=== PATIENT | female | born 1995 | race Caucasian/White ===

== ENCOUNTER 2018-05-23 10:44 | Emergency (ER) | payer OTHER ==
[2018-05-23] MEDS: NS 1,000 ML IV (11:15)
[2018-05-23] MEDS: ONDANSETRON 4MG/2ML VIAL (J2405) IV (11:15)
[2018-05-23 11:38] LABS: KETONE, URINE AUTO RFX NEGATIVE (NEGATIVE); LEUKOCYTE ESTERASE UR AUTO RFX NEGATIVE (NEGATIVE); MUCUS, URINE RFX SMALL (NEGATIVE); NITRITE, URINE AUTO RFX NEGATIVE (NEGATIVE); RBC, URINE AUTO RFX 6 /HPF (0-3); SPECIFIC GRAVITY UR AUTO RFX 1.025 (1.002-1.035); SQUAM EPITHELIAL CELL UR AURFX 8 /HPF (0-6); WBC, URINE AUTO RFX 10 /HPF (0-3)
[2018-05-23] MEDS: GASTROGRAFIN SOLUTION 30ML PO ×2 (11:45→12:15)
[2018-05-23] MEDS: MORPHINE 2 MG/ML 1ML SYRINGE (J2270) IV (12:10)
[2018-05-23 12:15] LABS: BASO % 0.3 % (0.0-1.0); EOS % 0.3 % (0.0-3.0); HEMATOCRIT 40.7 % (36.0-47.0); HEMOGLOBIN 13.7 g/dl (12.0-15.5); IMMATURE GRANULOCYTE % 0.6 % (0-3.0); LYMPH # 1.2 10^3/uL (1.5-6.5); MEAN CORPUSCULAR HEMOGLOBIN 29.8 pg (27.0-33.0); MEAN CORPUSCULAR HGB CONC 33.7 g/dl (32.0-36.5); MEAN CORPUSCULAR VOLUME 88.5 fl (80.0-96.0); MONO # 0.3 10^3/uL (0.0-0.8); MONO % 3.3 % (0.0-5.0); NEUTROPHILS # 8.5 10^3/uL (1.8-7.7); NEUTROPHILS % 83.5 % (36.0-66.0); PLATELET COUNT, AUTOMATED 253 10^3/uL (150-450); RED CELL DISTRIBUTION WIDTH 12.4 % (11.5-14.5); WHITE BLOOD COUNT 10.1 10^3/uL (4.0-10.0)
[2018-05-23 12:47] LABS: ALBUMIN 3.9 GM/DL (3.2-5.2); ALBUMIN/GLOBULIN RATIO 1.15 (1.00-1.93); ALKALINE PHOSPHATASE 82 U/L (45-117); ALT/SGPT 20 U/L (12-78); ANION GAP 7 MEQ/L (8-16); AST/SGOT 11 U/L (7-37); BILIRUBIN,DIRECT 0.2 MG/DL (0.0-0.2); BILIRUBIN,TOTAL 0.9 MG/DL (0.2-1.0); BLOOD UREA NITROGEN 13 MG/DL (7-18); C REACTIVE PROTEIN QUANTITATIV 0.46 MG/DL (0.00-0.30); CARBON DIOXIDE LEVEL 27 MEQ/L (21-32); CHLORIDE LEVEL 106 MEQ/L (98-107); GLOMERULAR FILTRATION RATE > 60.0 (>60); GLUCOSE, FASTING 87 MG/DL (70-100); LIPASE 95 U/L (73-393); POTASSIUM SERUM 3.9 MEQ/L (3.5-5.1); SODIUM LEVEL 140 MEQ/L (136-145); TOTAL PROTEIN 7.3 GM/DL (6.4-8.2)
[2018-05-23 12:50] LABS: ERYTHROCYTE SEDIMENTATION RATE 9 mm/hr (0-20)
[2018-05-23] MEDS ORDERED: ISOVUE-370 76% 100ML VIAL (Q9967) As Ordered (12:59)
== END 2018-05-23 14:05 | disposition home or self-care (01) ==
LOC: M ED 10:44
DX: K52.9 Noninfective gastroenteritis and colitis, unspecified (principal); F41.9 Anxiety disorder, unspecified; F32.9 Major depressive disorder, single episode, unspecified; Z88.0 Allergy status to penicillin; Z79.899 Other long term (current) drug therapy
CPT/HCPCS: Q9963

== ENCOUNTER → 2018-06-12 | Outpatient (REF) | payer OTHER ==
[2018-06-12 18:07] LABS: BASO # 0.1 10^3/uL (0.0-0.2); BASO % 0.8 % (0.0-1.0); EOS # 0.1 10^3/uL (0.0-0.50); EOS % 0.9 % (0.0-3.0); HEMATOCRIT 44.2 % (36.0-47.0); HEMOGLOBIN 14.9 g/dl (12.0-15.5); IMMATURE GRANULOCYTE % 0.3 % (0-3.0); LYMPH # 1.7 10^3/uL (1.5-6.5); LYMPH % 26.7 % (24.0-44.0); MEAN CORPUSCULAR HEMOGLOBIN 29.5 pg (27.0-33.0); MEAN CORPUSCULAR HGB CONC 33.7 g/dl (32.0-36.5); MEAN CORPUSCULAR VOLUME 87.5 fl (80.0-96.0); MONO # 0.3 10^3/uL (0.0-0.8); MONO % 4.3 % (0.0-5.0); NEUTROPHILS # 4.3 10^3/uL (1.8-7.7); PLATELET COUNT, AUTOMATED 289 10^3/uL (150-450); RED BLOOD COUNT 5.05 10^6/uL (4.00-5.40); RED CELL DISTRIBUTION WIDTH 12.5 % (11.5-14.5); WHITE BLOOD COUNT 6.5 10^3/uL (4.0-10.0)
[2018-06-12 18:17] LABS: ALBUMIN 3.9 GM/DL (3.2-5.2); ALBUMIN/GLOBULIN RATIO 1.08 (1.00-1.93); ALKALINE PHOSPHATASE 62 U/L (45-117); ALT/SGPT 35 U/L (12-78); ANION GAP 7 MEQ/L (8-16); AST/SGOT 21 U/L (7-37); BILIRUBIN,TOTAL 0.9 MG/DL (0.2-1.0); BLOOD UREA NITROGEN 9 MG/DL (7-18); CALCIUM LEVEL 8.5 MG/DL (8.5-10.1); CARBON DIOXIDE LEVEL 26 MEQ/L (21-32); CHLORIDE LEVEL 106 MEQ/L (98-107); GLOMERULAR FILTRATION RATE > 60.0 (>60); GLUCOSE, FASTING 91 MG/DL (70-100); SODIUM LEVEL 139 MEQ/L (136-145); THYROXINE (T4) 9.8 UG/DL (4.5-12.0); TOTAL PROTEIN 7.5 GM/DL (6.4-8.2)
[2018-06-12 18:18] LABS: TOTAL 25(OH) VITAMIN D < 4.2 NG/ML (30.0-100.0); TOTAL T3 133.5 NG/DL (60.0-181.0)
[2018-06-18 10:16] LABS: SUMMARY FINAL (.)
== END ==
LOC: M LAB REF 16:33
DX: F41.8 Other specified anxiety disorders (principal)
CPT/HCPCS: 84443

== ENCOUNTER 2018-10-07 19:53 | Emergency (ER) | payer OTHER ==
[~2018-10-07] VITALS: Ht 157.5 cm; Wt 73.6 kg
[2018-10-07 19:53] VITALS: BP 118/79
[~2018-10-07 19:53] MED LIST: CIPR-249 PO; FLAG500T PO; LEXA1TAB2 PO; SERO1TAB3 PO
[2018-10-07] MEDS ORDERED: LEXA1TAB2 PO (20:29)
[2018-10-07] MEDS ORDERED: ESCITALOPRAM OXALATE 10 MG TAB (LEXAPRO) PO ONE (20:30)
== END 2018-10-07 20:44 | disposition home or self-care (01) ==
LOC: M ED 19:53
DX: Z76.0 Encounter for issue of repeat prescription (principal); F33.9 Major depressive disorder, recurrent, unspecified; F41.9 Anxiety disorder, unspecified; Z88.0 Allergy status to penicillin

== ENCOUNTER 2020-01-11 03:44 | Inpatient (IN) | payer OTHER, SELFPAY ==
[~2020-01-11] VITALS: Ht 157.5 cm; Wt 85.1 kg
[2020-01-11 04:56] LABS: HEMOGLOBIN 14.2 g/dl (12.0-15.5); MEAN CORPUSCULAR HEMOGLOBIN 28.8 pg (27.0-33.0); MEAN CORPUSCULAR HGB CONC 33.8 g/dl (32.0-36.5); MEAN CORPUSCULAR VOLUME 85.2 fl (80.0-96.0); PLATELET COUNT, AUTOMATED 323 10^3/uL (150-450); RED BLOOD COUNT 4.93 10^6/uL (4.00-5.40)
[2020-01-11 05:14] LABS: AMPHETAMINES LEVEL URINE NEGATIVE (NEGATIVE); BARBITURATES URINE NEGATIVE (NEGATIVE); BENZODIAZEPINES URINE NEGATIVE (NEGATIVE); CANNABINOIDS URINE POSITIVE (NEGATIVE); COCAINE METABOLITE URINE NEGATIVE (NEGATIVE); METHADONE URINE NEGATIVE (NEGATIVE); OPIATES URINE NEGATIVE (NEGATIVE); PHENCYCLIDINE URINE NEGATIVE (NEGATIVE)
[2020-01-11 05:14] LABS: HCG, SERUM QUALITATIVE NEGATIVE (NEGATIVE)
[2020-01-11 05:25] LABS: ACETAMINOPHEN LEVEL < 2.0 UG/ML (10.0-30.0); ALBUMIN 4.1 GM/DL (3.2-5.2); ALT/SGPT 28 U/L (12-78); BILIRUBIN,DIRECT 0.3 MG/DL (0.0-0.2); BILIRUBIN,TOTAL 1.3 MG/DL (0.2-1.0); BLOOD UREA NITROGEN 11 MG/DL (7-18); CALCIUM LEVEL 9.1 MG/DL (8.5-10.1); CARBON DIOXIDE LEVEL 21 MEQ/L (21-32); CHLORIDE LEVEL 107 MEQ/L (98-107); CREATININE FOR GFR 0.76 MG/DL (0.55-1.30); ETHYL ALCOHOL (ETHANOL) 0.003 % (0.000-0.010); GLOMERULAR FILTRATION RATE > 60.0 (>60); GLUCOSE, FASTING 96 MG/DL (70-100); POTASSIUM SERUM 3.5 MEQ/L (3.5-5.1); SALICYLATE LEVEL < 1.7 MG/DL (5.0-30.0); SODIUM LEVEL 140 MEQ/L (136-145); TOTAL PROTEIN 7.5 GM/DL (6.4-8.2)
[2020-01-11] MEDS ORDERED: ONDANSETRON 4 MG ORAL DISINTEGRATING TAB PO ONE (07:00)
[2020-01-11] MEDS ORDERED: LORazepam 1 MG TAB PO STA (08:10)
[2020-01-11] MEDS ORDERED: QUET1TAB7 PO (08:25)
[2020-01-11] MEDS ORDERED: DROS1TAB2 PO (08:25)
[2020-01-11 10:42] LABS: CK-MB VALUE MASS < 1.0 NG/ML (<3.6); CPK CREATINE PHOSPHOKINASE 50 U/L (26-192); TROPONIN I < 0.02 NG/ML (< 0.10)
--- NOTE | 2020-01-11 10:44 | ECGEPIP ---
[facility] - ED Test Date: 2020-01-11 Pat Name: HOLLY COSTA Department: Room: - Gender: Female Junior Net Developer: LEVAR : 1995 Requested By: Krzysztof Hernandes Order Number: [id number] Reading MD: Massiel Butler Measurements Intervals [place] Rate: 111 P: 64 AR: 102 QRS: 44 QRSD: 83 T: 70 QT: 354 QTc: 483 Interpretive Statements SINUS TACHYCARDIA WITH SHORT AR INTERVAL LOW QRS VOLTAGE IN PRECORDIAL LEADS MODERATE T-WAVE ABNORMALITY, CONSIDER ANTERIOR ISCHEMIA CLINICAL CORRELATION NO PRIOR Electronically Signed on 01-11-2020 10:44:19 EDT by Massiel Butler
[2020-01-11] MEDS ORDERED: LORazepam 2 MG/ML VIAL IV STA (14:21)
[2020-01-11] MEDS ORDERED: ISOVUE-370 76% 100ML VIAL As Ordered ONE (14:27)
[2020-01-11] MEDS ORDERED: ONDANSETRON 4MG/2ML VIAL IV ONE (14:30)
[2020-01-11] MEDS ORDERED: NS 1,000 ML IV ONE (15:00)
[2020-01-11] MEDS ORDERED: MAALOX 30 ML SUSP *UDC PO PRN (22:45)
[2020-01-11] MEDS ORDERED: MOM 30ML SUSPENSION UDC PO PRN (22:45)
[2020-01-11] MEDS ORDERED: ACETAMINOPHEN TAB 650MG DOSE (2X325MG) PO PRN (22:45)
[2020-01-11] MEDS ORDERED: LEXA1TAB2 PO (23:01)
[2020-01-12] VITALS: BP 133/67
[2020-01-12] MEDS ORDERED: QUEtiapine FUMARATE 25 MG TAB PO PRN
[2020-01-12] MEDS: traZODone 50 MG TAB PO PRN ×2 (00:03→21:51)
[2020-01-12] MEDS: OLANZapine ORAL DISINTEGRATING TAB 5MG PO PRN ×4 (00:44→21:51)
[2020-01-12 06:10] VITALS: BP 121/62
[2020-01-12] MEDS ORDERED: ESCITALOPRAM OXALATE 10 MG TAB (LEXAPRO) PO SCH (09:00)
[2020-01-12] MEDS: ESCITALOPRAM OXALATE 10 MG TAB (LEXAPRO) PO SCH (09:07)
--- NOTE | 2020-01-12 11:12 | MHHPEPDOC ---
[facility] History & Physical History and Physical DATE OF ADMISSION: Jan 11, 2020 at 22:39 HPI: The patient presented to [facility] after having increasing anxiety over the past several days when she was not able to go on a vacation, she subsequently reported suicidal thoughts with a plan to overdose. She doesn't engage in any interview. Past Psych Hx She reports being diagnosed in the past with depression, DYLAN, and borderline personality disorder. She currently only has one admission two years ago in [facility]. Currently, at [facility]; only prescribed Lexapro and Seroquel. MEDICAL HISTORY: No history of suicide attempts or history of inpatient admissions. Fmhx: unknown SOCHX: reportedly . Objective Behavior: Patient is attempted to be met with but she is asleep and does not wake to me calling her name; she does appear to respond otherwise. . Assessment F33.9 Major depressive disorder, recurrent, unspecified Plan Continue medications and observations as of current with no changes. Will attempt to engage patient tomorrow to better effect. Other history information is unable to be gained at this time. Treatment objectives: 1. Risk for suicide 2. Ineffective coping. Estimated length of stay anywhere between two to three days. Vital Signs Vital Signs Date Time Temp Pulse Resp B/P (MAP) Pulse Ox O2 Delivery O2 Flow Rate FiO2 01/12/20 06:10 99.0 63 18 121/62 (81) 01/12/20 00:00 97 Room Air Laboratory Data 24H Labs Laboratory Tests 2 01/11/20 18:05: Coronavirus (COVID-19)(PCR) NEGATIVE Medications Scheduled Escitalopram Oxalate (Lexapro) 20 Mg Tablet, 20 MG PO DAILY, (Reported) Ethinyl Estradiol/Drospirenone (Drospirenone-Ee 3-0.02 mg Tab) 1 Each Tablet, 1 TAB PO DAILY, (Reported) Scheduled PRN Quetiapine Fumarate (Quetiapine Fumarate) 25 Mg Tablet, 25 MG PO DAILY PRN for PANIC ATTACK, (Reported) Allergies Coded Allergies: Penicillins (Verified Allergy, Unknown, 10/07/18) amoxicillin (Verified Allergy, Unknown, 10/07/18) RUDDY DERAS DO Jan 12, 2020 11:12
--- NOTE | 2020-01-12 12:26 | REP ---
CT ABDOMEN/PELVIS WITH IV CONTRAST: TECHNIQUE: Axial contrast-enhanced images from the lung bases to the pubic symphysis using 100 mL Isovue-370 intravenous contrast material with multiplanar reformations. Visualized lung bases are clear. The liver, spleen, adrenals, pancreas, and kidneys are normal in appearance. There is no adenopathy. There is no free air or free fluid. There is no bowel obstruction. Abdominal aorta is normal in caliber with no aneurysm. There is no pelvic mass. Urinary bladder is not well distended and not well evaluated. IMPRESSION: No acute abnormalities detected. Electronically Signed by Ben Dong MD 01/13/2020 11:30 P
--- NOTE | 2020-01-12 15:29 | HPEPDOC ---
General Date of Admission Jan 11, 2020 at 22:39 Date of Service: Jan 12, 2020 Attending Physician: YVETTE PINTO MD Chief Complaint The patient is a 24-year-old female admitted with a reason for visit of Unspecified Depressive Disorder. Source: Patient Exam Limitations: No limitations Timing/Duration: Getting worse Severity: Moderate, Severe History of Present Illness 24 yo W who reports a prior history of MDD, DYLAN, borderline personality disorder who is admitted to the [facility] after presenting to the ED with worsening debilitating anxiety now having SI with passive plan to OD on medications as well as persistent diarrhea for about 1 month. She reports that she used to smoke marijuana daily but has slowed down recently as it does not seem to help her anxiety and since finding out that it may cause GI upset and diarrhea, and her diarrhea has improved. Workup in the ED was notable for a grossly normal CBC, BMP, CT A/P and tox screen was positive for marijuana. Outside of diarrhea and some episodic abdominal cramping she denies any abdominal pain, N/V/hematochezia, melena, chest pain, fever, chills, travel, sick contacts or food allergies. Home Medications Scheduled Escitalopram Oxalate (Lexapro) 20 Mg Tablet, 20 MG PO DAILY, (Reported) Ethinyl Estradiol/Drospirenone (Drospirenone-Ee 3-0.02 mg Tab) 1 Each Tablet, 1 TAB PO DAILY, (Reported) Scheduled PRN Quetiapine Fumarate (Quetiapine Fumarate) 25 Mg Tablet, 25 MG PO DAILY PRN for PANIC ATTACK, (Reported) Allergies Coded Allergies: Penicillins (Verified Allergy, Unknown, 10/07/18) amoxicillin (Verified Allergy, Unknown, 10/07/18) Past Medical History Medical History MDD, DYLAN, borderline personality disorder, obesity Family History Significant Family History: Diverticulitis Social History * Smoker: Denies Alcohol: Denies Drugs: marijuana Recent Travel/Sick Contacts: Denies: Recent travel, Recent sick contacts Psychosocial History: Anxiety, Decreased mood, Depression A-FIB/CHADSVASC A-FIB History Current/History of A-Fib/PAF?: No Current PO Anticoag Therapy: No Age/Risk Factor Scoring CHADSVASC: CHADSVASC Response (Comments) Value Age Risk Factor Age < 65 years old 0 Gender Risk Factor Female 1 Hx of CHF No 0 Hx of HTN No 0 Hx of Stroke/TIA/or VTE No 0 Hx of Diabetes No 0 Hx of Vascular Disease No 0 Total 1 Treatment Treatment ordered: NONE Reason Anticoagulant not given: Not indicated/[id number] Review of Systems Constitutional: Denies: Chills, Fever, Night Sweats Eyes: Denies: Pain, Vision change ENT: Denies: Head Aches, Ear Pain, Dysphagia Skin: Denies: Rash, Lesions, Breakdown Pulmonary: Denies: Dyspnea, Cough Cardiovascular: Denies: Chest Pain, Palpitations, Orthopnea, Paroxysmal Noc. Dyspnea, Lt Headedness Gastrointestinal: Reports: Diarrhea; Denies: Nausea, Vomiting, Abdominal Pain, Constipation, Melena, Hematochezia Genitourinary: Denies: Dysuria, Frequency, Incontinence, Retention Hematologic: Denies: Bruising, Bleeding Excessively Endocrine: Denies: Polydipsia, Polyphagia, Polyuria, Heat Intolerance, Cold Intolerance, Other Endocrine Sx Musculoskeletal: Denies: Neck Pain, Back Pain, Joint Pain, Muscle Pain, Spasms Neurological: Denies: Weakness, Numbness, Change in speech, Confusion Psych: Reports: Anxiety, Depression, Other Psych (SI) Physical Examination General Exam: Positive: Alert, No Acute Distress, Other (obese) Eye Exam: Positive: PERRLA, Conjunctiva & lids normal, EOMI; Negative: Sclera icteric ENT Exam: Positive: Atraumatic, Mucous membr. moist/pink, Pharynx Normal Neck Exam: Positive: Supple; Negative: JVD, thyromegaly Chest Exam: Positive: Clear to auscultation, Normal air movement Heart Exam: Positive: Rate Normal, Regular Rhythm, Normal S1, Normal S2; Negative: Murmurs, Rubs Abdomen Exam: Positive: Normal bowel sounds, Soft; Negative: Tenderness, Hepatospenomegaly Extremity Exam: Positive: Normal pulses; Negative: Clubbing, Cyanosis, Edema Skin Exam: Positive: Nl turgor and temperature; Negative: Breakdown, Lesion Psych Exam: Positive: Oriented x 3 Vital Signs Vital Signs Date Time Temp Pulse Resp B/P (MAP) Pulse Ox O2 Delivery O2 Flow Rate FiO2 01/12/20 06:10 99.0 63 18 121/62 (81) 01/12/20 00:00 97 Room Air Laboratory Data Labs 24H Laboratory Tests 2 01/11/20 18:05: Coronavirus (COVID-19)(PCR) NEGATIVE Assessment/Plan 24 yo W who reports a prior history of MDD, DYLAN, borderline personality disorder who is admitted to the [facility] after presenting to the ED with worsening debilitating anxiety now having SI with passive plan to OD on medications, with a grossly benign examination and basic workup. Medicine will sign off at this time. Plan: Anxiety, depression and SI: -Plan per psych team Diarrhea: reports that it has remitted with residual episodic bloating -Reports that her GP tested her thyroid function that was found to be normal. -CT A/P did not show pathology -the diarrhea remitted when she slowed the marijuana use, so she thinks they are related -No interventions at this time. Medicine signing off. Plan / VTE VTE Prophylaxis Ordered?: No VTE Exclusion Mechanical Proph: Low Risk for VTE VTE Exclusion Pharmacological: At Low Risk for VTE YVETTE PINTO MD Jan 12, 2020 15:29
[2020-01-12 16:25] VITALS: BP 130/63
[2020-01-13 06:26] VITALS: BP 120/56
[2020-01-13] MEDS: OLANZapine ORAL DISINTEGRATING TAB 5MG PO PRN ×3 (07:59→20:46)
[2020-01-13] MEDS: ESCITALOPRAM OXALATE 10 MG TAB (LEXAPRO) PO SCH (08:00)
--- NOTE | 2020-01-13 12:40 | MHIPNPDOC ---
[facility] Progress Note Progress Note DATE OF SERVICE: 01/13/20 HPI: pt presents today for concerns regarding her anxiety. She notes her anxiety is exacerbated by the separation of her and her partner of 8 years. She feels physically nauseous due to anxiety. pt also admits that she is struggling with suicidal thoughts. MEDICATIONS: Currently taking Lexapro and Seroquel. Objective Affect: Full range. Appropriate to context. Mood: Highly anxious. Dysthymic. Tearful at times. Speech: Normal rate. Spontaneous and fluid. Normal volume. Motor: Some shakiness. Cognition: Alert, Attentive, and Oriented to person, place, time. Judgement: intact as evidenced by decision making in the recent past. Insight: good insight into symptoms and treatment options. 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 Discontinue Seroquel. Start Clonazepam 0.25 mg daily. The risks, benefits as well as common side effects as well as alternative treatments (including non-treatment) were discussed with the patient both in general and for their particular case. The patient selected this option out of a range. Vital Signs Vital Signs Date Time Temp Pulse Resp B/P (MAP) Pulse Ox O2 Delivery O2 Flow Rate FiO2 01/13/20 06:26 97.7 71 16 120/56 (77) 01/12/20 00:00 97 Room Air Current Medications Current Medications Medications (Trade) Dose Ordered Sig/Vianney Route PRN Reason Start Time Stop Time Status Last Admin Dose Admin Acetaminophen (Tylenol Tab) 650 mg Q6HP PRN PO HEADACHE or DISCOMFORT 01/11/20 22:45 Al Hydrox/Mg Hydrox/Simethicone (Mylanta) 30 ml Q4HP PRN PO HEARTBURN/INDIGESTION 01/11/20 22:45 Escitalopram Oxalate (Lexapro) 20 mg DAILY PO 01/12/20 09:00 01/11/20 23:58 DC Escitalopram Oxalate (Lexapro) 20 mg DAILY PO 01/12/20 09:00 01/13/20 08:00 Home Med (Med Rec Complete!) ASDIRECTED XX 01/11/20 23:15 01/11/20 23:06 DC Lorazepam (Ativan) 1 mg STAT STAT IV 01/11/20 14:21 01/11/20 14:22 DC 01/11/20 15:00 Lorazepam (Ativan) 1 mg STAT STAT PO 01/11/20 08:10 01/11/20 08:11 DC 01/11/20 08:53 Magnesium Hydroxide (Milk Of Magnesia) 30 ml DAILYPRN PRN PO CONSTIPATION 01/11/20 22:45 Olanzapine (ZyPREXA ZYDIS) 5 mg Q4HP PRN PO ANXIETY/AGITATION 01/12/20 00:45 01/13/20 12:34 Quetiapine Fumarate (SEROquel) 25 mg DAILY PRN PO PANIC ATTACK 01/12/20 00:00 01/12/20 00:03 Trazodone HCl (Desyrel) 50 mg QHSP PRN PO INSOMNIA 01/11/20 22:45 01/12/20 21:51 Allergies Coded Allergies: Penicillins (Verified Allergy, Unknown, 10/07/18) amoxicillin (Verified Allergy, Unknown, 10/07/18) RUDDY DERAS DO Jan 13, 2020 12:40
[2020-01-13] MEDS ORDERED: PILL CUTTER 1 EACH XX PRN (15:30)
[2020-01-13] MEDS ORDERED: clonazePAM 0.5 MG TAB PO ONE (16:00)
[2020-01-13 16:30] VITALS: BP 115/73
[2020-01-13] MEDS: traZODone 50 MG TAB PO PRN (20:46)
[2020-01-14 06:39] VITALS: BP 118/70
[2020-01-14] MEDS: clonazePAM 0.5 MG TAB PO SCH (08:30)
[2020-01-14] MEDS: ESCITALOPRAM OXALATE 10 MG TAB (LEXAPRO) PO SCH (08:31)
--- NOTE | 2020-01-14 09:13 | MHIPNPDOC ---
[facility] Progress Note Progress Note DATE OF SERVICE: 01/14/20 HPI: Mojgan presents today for a follow-up visit. She states she can breathe more and reports some edge. Mojgan mentions feeling surprised at how efficiently the medication is working. She admits experiencing a few spikes and that she is thinking with a clear head. Mojgan reports struggling with thoughts of self- harm but reports she is able to control herself better now. Objective Appearance: Well nourished. Well groomed. Behavior: Cooperative with good eye contact. Pleasant. Engaged. Affect: Full range. Appropriate to context. Improved and less anxious. Speech: Normal volume. Normal rate. Cognition: Alert, Attentive, and Oriented to person, place, time. Judgement: intact as evidenced by decision making in the recent past. Insight: good insight into symptoms and treatment options. 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 Vital Signs Vital Signs Date Time Temp Pulse Resp B/P (MAP) Pulse Ox O2 Delivery O2 Flow Rate FiO2 01/14/20 06:39 97.2 78 12 118/70 (86) Room Air 01/12/20 00:00 97 Current Medications Current Medications Medications (Trade) Dose Ordered Sig/Vianney Route PRN Reason Start Time Stop Time Status Last Admin Dose Admin Acetaminophen (Tylenol Tab) 650 mg Q6HP PRN PO HEADACHE or DISCOMFORT 01/11/20 22:45 Al Hydrox/Mg Hydrox/Simethicone (Mylanta) 30 ml Q4HP PRN PO HEARTBURN/INDIGESTION 01/11/20 22:45 Clonazepam (KlonoPIN) 0.25 mg DAILY PO 01/14/20 09:00 01/14/20 08:30 Escitalopram Oxalate (Lexapro) 20 mg DAILY PO 01/12/20 09:00 01/11/20 23:58 DC Escitalopram Oxalate (Lexapro) 20 mg DAILY PO 01/12/20 09:00 01/14/20 08:31 Home Med (Med Rec Complete!) ASDIRECTED XX 01/11/20 23:15 01/11/20 23:06 DC Lorazepam (Ativan) 1 mg STAT STAT IV 01/11/20 14:21 01/11/20 14:22 DC 01/11/20 15:00 Lorazepam (Ativan) 1 mg STAT STAT PO 01/11/20 08:10 01/11/20 08:11 DC 01/11/20 08:53 Magnesium Hydroxide (Milk Of Magnesia) 30 ml DAILYPRN PRN PO CONSTIPATION 01/11/20 22:45 Olanzapine (ZyPREXA ZYDIS) 5 mg Q4HP PRN PO ANXIETY/AGITATION 01/12/20 00:45 01/13/20 20:46 Quetiapine Fumarate (SEROquel) 25 mg DAILY PRN PO PANIC ATTACK 01/12/20 00:00 01/13/20 15:08 DC 01/12/20 00:03 Trazodone HCl (Desyrel) 50 mg QHSP PRN PO INSOMNIA 01/11/20 22:45 01/13/20 20:46 Allergies Coded Allergies: Penicillins (Verified Allergy, Unknown, 10/07/18) amoxicillin (Verified Allergy, Unknown, 10/07/18) RUDDY DERAS DO Jan 14, 2020 09:13
[2020-01-14] MEDS: OLANZapine ORAL DISINTEGRATING TAB 5MG PO PRN ×2 (11:59→23:50)
[2020-01-14 15:55] VITALS: BP 116/67
[2020-01-14] MEDS: traZODone 50 MG TAB PO PRN (20:31)
[2020-01-15 06:43] VITALS: BP 118/73
[2020-01-15] MEDS: clonazePAM 0.5 MG TAB PO SCH ×2 (08:15→21:18)
[2020-01-15] MEDS: ESCITALOPRAM OXALATE 10 MG TAB (LEXAPRO) PO SCH (08:16)
--- NOTE | 2020-01-15 08:20 | MHIPNPDOC ---
[facility] Progress Note Progress Note DATE OF SERVICE: 01/15/20 HPI: Mojgan presents today for concerns regarding a follow-up visit. She reports that she still has shaky moments mainly before bed and in the morning and as she goes through the day she still has some spikes. She adds that her medication is definitely doing something for her and is better than previous ones. She denies any dizziness or lethargy, or any side effects from taking the medications. She reports that she has been walking around more and trying to get more exercise. She notes that she feels relieved and is doing good with suicidal thoughts. Objective Appearance: Well nourished. Well groomed. Mood: Appropriately reactive. Generally good. Euthymic. Thought Form: Linear and goal directed. Thought Content: No evidence of aggressive or homicidal ideation. No evidence of suicidal ideation. No thoughts of self harm. No evidence of delusions. Perception: No perceptual abnormalities noted. Judgement: intact as evidenced by decision making in the recent past. Insight: good insight into symptoms and treatment options. Assessment F41.1 Generalized anxiety disorder F33.9 Major depressive disorder, recurrent, unspecified Plan We will increase Clonazepam to 0.25 mg twice daily. She will continue Lexapro. Potential discharge later this week as she is making good progres Vital Signs Vital Signs Date Time Temp Pulse Resp B/P (MAP) Pulse Ox O2 Delivery O2 Flow Rate FiO2 01/15/20 06:43 97.4 61 14 118/73 (88) 97 Room Air Current Medications Current Medications Medications (Trade) Dose Ordered Sig/Vianney Route PRN Reason Start Time Stop Time Status Last Admin Dose Admin Acetaminophen (Tylenol Tab) 650 mg Q6HP PRN PO HEADACHE or DISCOMFORT 01/11/20 22:45 01/14/20 23:49 Al Hydrox/Mg Hydrox/Simethicone (Mylanta) 30 ml Q4HP PRN PO HEARTBURN/INDIGESTION 01/11/20 22:45 Clonazepam (KlonoPIN) 0.25 mg DAILY PO 01/14/20 09:00 01/15/20 08:15 Escitalopram Oxalate (Lexapro) 20 mg DAILY PO 01/12/20 09:00 01/11/20 23:58 DC Escitalopram Oxalate (Lexapro) 20 mg DAILY PO 01/12/20 09:00 01/15/20 08:16 Home Med (Med Rec Complete!) ASDIRECTED XX 01/11/20 23:15 01/11/20 23:06 DC Lorazepam (Ativan) 1 mg STAT STAT IV 01/11/20 14:21 01/11/20 14:22 DC 01/11/20 15:00 Lorazepam (Ativan) 1 mg STAT STAT PO 01/11/20 08:10 01/11/20 08:11 DC 01/11/20 08:53 Magnesium Hydroxide (Milk Of Magnesia) 30 ml DAILYPRN PRN PO CONSTIPATION 01/11/20 22:45 Olanzapine (ZyPREXA ZYDIS) 5 mg Q4HP PRN PO ANXIETY/AGITATION 01/12/20 00:45 01/14/20 23:50 Quetiapine Fumarate (SEROquel) 25 mg DAILY PRN PO PANIC ATTACK 01/12/20 00:00 01/13/20 15:08 DC 01/12/20 00:03 Trazodone HCl (Desyrel) 50 mg QHSP PRN PO INSOMNIA 01/11/20 22:45 01/14/20 20:31 Allergies Coded Allergies: Penicillins (Verified Allergy, Unknown, 10/07/18) amoxicillin (Verified Allergy, Unknown, 10/07/18) RUDDY DERAS DO Jan 15, 2020 08:20
[2020-01-15] MEDS: OLANZapine ORAL DISINTEGRATING TAB 5MG PO PRN (12:31)
[2020-01-15 17:17] VITALS: BP 134/65
[2020-01-16 06:34] VITALS: BP 115/79
[2020-01-16] MEDS: clonazePAM 0.5 MG TAB PO SCH ×2 (08:38→20:50)
[2020-01-16] MEDS: ESCITALOPRAM OXALATE 10 MG TAB (LEXAPRO) PO SCH (08:38)
--- NOTE | 2020-01-16 10:28 | MHIPNPDOC ---
[facility] Progress Note Progress Note DATE OF SERVICE: 01/16/20 Mojgan presents today for a follow up. Mojgan claims that the only thing she is stressing about is how she is going to handle when she goes back home, bu t she is also feeling more optimistic about the situation. She states that she also has not had any suicidal thoughts in the past 24 hours. She feels that she can manage if an episode strikes her. Meaning, before it becomes a panic attack, she has more time to think about the situation and reassess whats going on. Moreover, she can control the breathing she has to do as well as change her surroundings. She also claims that she feels she is fine and is safe to be discharged tomorrow. She will be returning to her private practice psychiatrist. Objective Appearance: Well nourished. Well groomed. Behavior: Engaged. Cooperative with good eye contact. Pleasant. Affect: Full range. Appropriate to context. Mood: Euthymic. Generally good. Appropriately reactive. Speech: Normal volume. Normal rate. Motor: No gross motor abnormalities. Cognition: Alert, Attentive, and Oriented to person, place, time. Memory: No gross abnormalities of short or clinical trials data coordinator memory noted during interview. No formal testing. Thought Form: Linear and goal directed. Thought Content: No evidence of aggressive or homicidal ideation. No evidence of suicidal ideation. No evidence of delusions. No thoughts of self harm. Perception: No perceptual abnormalities noted. Judgement: intact as evidenced by decision making in the recent past. Insight: good insight into symptoms and treatment options. Assessment F33.9 Major depressive disorder, recurrent, unspecified Plan We plan to continue Clonazepam and Lexapro. She will be released tomorrow Vital Signs Vital Signs Date Time Temp Pulse Resp B/P (MAP) Pulse Ox O2 Delivery O2 Flow Rate FiO2 01/16/20 06:34 98.3 100 16 115/79 (91) 99 Room Air Current Medications Current Medications Medications (Trade) Dose Ordered Sig/Vianney Route PRN Reason Start Time Stop Time Status Last Admin Dose Admin Acetaminophen (Tylenol Tab) 650 mg Q6HP PRN PO HEADACHE or DISCOMFORT 01/11/20 22:45 01/14/20 23:49 Al Hydrox/Mg Hydrox/Simethicone (Mylanta) 30 ml Q4HP PRN PO HEARTBURN/INDIGESTION 01/11/20 22:45 Clonazepam (KlonoPIN) 0.25 mg BID PO 01/15/20 21:00 01/16/20 08:38 Clonazepam (KlonoPIN) 0.25 mg DAILY PO 01/14/20 09:00 01/15/20 10:49 DC 01/15/20 08:15 Escitalopram Oxalate (Lexapro) 20 mg DAILY PO 01/12/20 09:00 01/11/20 23:58 DC Escitalopram Oxalate (Lexapro) 20 mg DAILY PO 01/12/20 09:00 01/16/20 08:38 Home Med (Med Rec Complete!) ASDIRECTED XX 01/11/20 23:15 01/11/20 23:06 DC Lorazepam (Ativan) 1 mg STAT STAT IV 01/11/20 14:21 01/11/20 14:22 DC 01/11/20 15:00 Lorazepam (Ativan) 1 mg STAT STAT PO 01/11/20 08:10 01/11/20 08:11 DC 01/11/20 08:53 Magnesium Hydroxide (Milk Of Magnesia) 30 ml DAILYPRN PRN PO CONSTIPATION 01/11/20 22:45 Olanzapine (ZyPREXA ZYDIS) 5 mg Q4HP PRN PO ANXIETY/AGITATION 01/12/20 00:45 01/15/20 12:31 Quetiapine Fumarate (SEROquel) 25 mg DAILY PRN PO PANIC ATTACK 01/12/20 00:00 01/13/20 15:08 DC 01/12/20 00:03 Trazodone HCl (Desyrel) 50 mg QHSP PRN PO INSOMNIA 01/11/20 22:45 01/14/20 20:31 Allergies Coded Allergies: Penicillins (Verified Allergy, Unknown, 10/07/18) amoxicillin (Verified Allergy, Unknown, 10/07/18) RUDDY DERAS DO Jan 16, 2020 10:28
[2020-01-16 17:12] VITALS: BP 127/59
[2020-01-16] MEDS: traZODone 50 MG TAB PO PRN (20:50)
[2020-01-16] MEDS: OLANZapine ORAL DISINTEGRATING TAB 5MG PO PRN (23:11)
[2020-01-17 06:46] VITALS: BP 127/78
--- NOTE | 2020-01-17 07:42 | MHIPNPDOC ---
[facility] Progress Note Progress Note DATE OF SERVICE: 01/17/20 HISTORY: . VITAL SIGNS: See below. NEW TEST RESULTS: . CURRENT MEDICATIONS: See below. MENTAL STATUS EXAMINATION: Patient is a -year old female, who is . Speech: Is . Language skills are . Thought processes including: . Thought content: . Abstract reasoning, and computation: . Description of asso ciations: . Description of abnormal or psychotic thoughts: . Judgment: . Insight: [very limited, good, fair. poor]. Orientation: . Recent and remote memory: . Attention span and concentration: . Language: . Fund of knowledge: . Mood: . Affect: . DIAGNOSES: 1. . 2. . 3. . ASSESSMENT: MANAGEMENT PLAN: . TIME SPENT: minutes. Vital Signs Vital Signs Date Time Temp Pulse Resp B/P (MAP) Pulse Ox O2 Delivery O2 Flow Rate FiO2 01/17/20 06:46 98.3 81 16 127/78 (94) 96 Room Air Current Medications Current Medications Medications (Trade) Dose Ordered Sig/Vianney Route PRN Reason Start Time Stop Time Status Last Admin Dose Admin Acetaminophen (Tylenol Tab) 650 mg Q6HP PRN PO HEADACHE or DISCOMFORT 01/11/20 22:45 01/14/20 23:49 Al Hydrox/Mg Hydrox/Simethicone (Mylanta) 30 ml Q4HP PRN PO HEARTBURN/INDIGESTION 01/11/20 22:45 Clonazepam (KlonoPIN) 0.25 mg BID PO 01/15/20 21:00 01/16/20 20:50 Clonazepam (KlonoPIN) 0.25 mg DAILY PO 01/14/20 09:00 01/15/20 10:49 DC 01/15/20 08:15 Escitalopram Oxalate (Lexapro) 20 mg DAILY PO 01/12/20 09:00 01/11/20 23:58 DC Escitalopram Oxalate (Lexapro) 20 mg DAILY PO 01/12/20 09:00 01/16/20 08:38 Home Med (Med Rec Complete!) ASDIRECTED XX 01/11/20 23:15 01/11/20 23:06 DC Lorazepam (Ativan) 1 mg STAT STAT IV 01/11/20 14:21 01/11/20 14:22 DC 01/11/20 15:00 Lorazepam (Ativan) 1 mg STAT STAT PO 01/11/20 08:10 01/11/20 08:11 DC 01/11/20 08:53 Magnesium Hydroxide (Milk Of Magnesia) 30 ml DAILYPRN PRN PO CONSTIPATION 01/11/20 22:45 Olanzapine (ZyPREXA ZYDIS) 5 mg Q4HP PRN PO ANXIETY/AGITATION 01/12/20 00:45 01/16/20 23:11 Quetiapine Fumarate (SEROquel) 25 mg DAILY PRN PO PANIC ATTACK 01/12/20 00:00 01/13/20 15:08 DC 01/12/20 00:03 Trazodone HCl (Desyrel) 50 mg QHSP PRN PO INSOMNIA 01/11/20 22:45 01/16/20 20:50 Allergies Coded Allergies: Penicillins (Verified Allergy, Unknown, 10/07/18) amoxicillin (Verified Allergy, Unknown, 10/07/18) RUDDY DERAS DO Jan 17, 2020 07:42
[2020-01-17] MEDS ORDERED: CLON0.5T2 PO (09:38)
--- NOTE | 2020-01-17 09:39 | MHDSPDOC ---
[facility] Discharge Summary Discharge Summary DATE OF ADMISSION: Jan 11, 2020 at 22:39 DATE OF DISCHARGE:Jan 17, 2020 at 11:40 DISCHARGE DIAGNOSES: DYLAN MDD, recurrent moderate REASON FOR ADMISSION: 24-year-old woman presents with suicidal statements context depression and DYLAN CONSULTANTS INVOLVED:[ None (basic hospitalist screening)] TREATMENT AND PROGRESS ON THE UNIT : Medication changes: resumed on previously effective Lexapro augmented with Klonopin 0.25 mg increase to 0.25 mg BID with positive effects tolerated well without any side effects Behavior on unit: became more able to attend groups due to severe anxiety and Jessi Neal appeared to improve her ability to attend to this Treatment attendance: attended well as she improved Notable issues on presentation: none State on discharge: [improved] DISCHARGE ASSESSMENT: The patient a 24 year old woman, with likely depression anxiety, presented to [facility], where they treated with appropriate agents and improve well. Legal status considerations: The patient at the time of discharge did not meet criteria for involuntary admission/extension due to having a [normal] mental status exam, [fair] insight into the situation, They are engaged in the discharge process, as well as being friendly and amenable in behavioral control and havent been engaging in any observed concerning behavior or ideation recently. They decline voluntary extension/admission at this time and must be discharged in good shawn, as Im unable to make a case for holding the patient against their will. They may have historical risk factors of admissions and other interactions with psychiatry however, those are not modifiable from a clinical perspective. The patient will need to be discharged in good shawn. MENTAL STATUS EXAMINATION ON DISCHARGE: [General: Well dressed with good hygiene Speech: Spontaneous and fluid Thought processes: Linear and logical Thought content: Future orientated Abstract reasoning, and computation: Intact Description of associations: Intact Description of abnormal or psychotic thoughts:Denies any suicidal or homicidal ideation. Denies any auditory or visual hallucinations. Does not appear to be responding to internal stimuli. Does not appear to be endorsing any bizarre or paranoid ideation. Judgment: fair Insight: fair Orientation: Alert and orientated 3 Recent and remote memory: Intact Attention span and concentration: Intact Fund of knowledge: Adequate Mood: "okay" Affect: Euthymic with a full range] PLAN/FOLLOWUP ARRANGEMENTS: Follow up appointments made (PCP and MH in 5 days of D/C date) and safety plan completed. Safety Planning aspects completed prior to discharge Medication supplies limited to prevent accumulation [Family contact completed, educated on safe practices, instructed on removal and mitigation of dangerous means] [RN reviewed crisis hotline information and other aspects to empower patient to access care in interim before next appointment.] The amount of time spent in the coordination of care for this patient was approximately 30 minutes. Vital Signs/I&Os Vital Signs Date Time Temp Pulse Resp B/P (MAP) Pulse Ox O2 Delivery O2 Flow Rate FiO2 01/17/20 06:46 98.3 81 16 127/78 (94) 96 Room Air Medications Scheduled Clonazepam (Clonazepam) 0.5 Mg Tablet, 0.25 MG PO BID for anxiety for 14 Days, #28 Escitalopram Oxalate (Lexapro) 20 Mg Tablet, 20 MG PO DAILY, (Reported) Ethinyl Estradiol/Drospirenone (Drospirenone-Ee 3-0.02 mg Tab) 1 Each Tablet, 1 TAB PO DAILY, (Reported) Allergies Coded Allergies: Penicillins (Verified Allergy, Unknown, 10/07/18) amoxicillin (Verified Allergy, Unknown, 10/07/18) RUDDY DERAS DO Jan 17, 2020 09:39
[2020-01-17] MEDS: OLANZapine ORAL DISINTEGRATING TAB 5MG PO PRN (09:44)
[2020-01-17] MEDS: clonazePAM 0.5 MG TAB PO SCH (09:45)
[2020-01-17] MEDS: ESCITALOPRAM OXALATE 10 MG TAB (LEXAPRO) PO SCH (09:45)
== END 2020-01-17 11:40 | disposition home or self-care (01) | DRG 756 ==
LOC: M ED 03:44 → M ED INP 22:39 → M PSY 23:15
PROVIDERS: ADMIT Psychiatry & Neurology Addiction Medicine; ATTEND Psychiatry & Neurology Addiction Medicine
DX: F41.1 Generalized anxiety disorder (principal); F33.1 Major depressive disorder, recurrent, moderate; Z88.0 Allergy status to penicillin; Z79.899 Other long term (current) drug therapy; F60.3 Borderline personality disorder; F12.90 Cannabis use, unspecified, uncomplicated; E66.9 Obesity, unspecified; R19.7 Diarrhea, unspecified

== ENCOUNTER 2020-05-29 00:32 | Observation (INO) | payer SELFPAY ==
[~2020-05-29] VITALS: Ht 157.5 cm; Wt 87.5 kg
[~2020-05-29 00:32] MED LIST changes: +CLON0.5T2 PO; +DROS1TAB2 PO; +QUET1TAB7 PO
[2020-05-29] MEDS ORDERED: CITA20TA6 (00:47)
[2020-05-29] MEDS ORDERED: ESCI10TA2 (00:47)
[2020-05-29] MEDS ORDERED: BUPR1TAB52 (00:47)
[2020-05-29 00:55] LABS: BASO # 0.1 10^3/uL (0.0-0.2); BASO % 0.3 % (0.0-1.0); EOS # 0.1 10^3/uL (0.0-0.5); EOS % 0.5 % (0.0-3.0); HEMATOCRIT 43.2 % (36.0-47.0); HEMOGLOBIN 14.3 g/dl (12.0-15.5); LYMPH # 1.7 10^3/uL (1.5-5.0); LYMPH % 11.4 % (24.0-44.0); MEAN CORPUSCULAR HEMOGLOBIN 28.8 pg (27.0-33.0); MEAN CORPUSCULAR HGB CONC 33.1 g/dl (32.0-36.5); MEAN CORPUSCULAR VOLUME 87.1 fl (80.0-96.0); MONO # 0.6 10^3/uL (0.0-0.8); MONO % 3.8 % (0.0-5.0); NEUTROPHILS # 12.7 10^3/uL (1.5-8.5); NEUTROPHILS % 83.4 % (36.0-66.0); PLATELET COUNT, AUTOMATED 329 10^3/uL (150-450); RED BLOOD COUNT 4.96 10^6/uL (4.00-5.40); WHITE BLOOD COUNT 15.2 10^3/uL (4.0-10.0)
[2020-05-29 01:19] LABS: HCG, SERUM QUALITATIVE NEGATIVE (NEGATIVE)
[2020-05-29 01:28] LABS: ACETAMINOPHEN LEVEL < 2.0 UG/ML (10.0-30.0); ALBUMIN 4.3 GM/DL (3.2-5.2); ALT/SGPT 15 U/L (12-78); BILIRUBIN,DIRECT 0.2 MG/DL (0.0-0.2); BILIRUBIN,TOTAL 1.3 MG/DL (0.2-1.0); BLOOD UREA NITROGEN 10 MG/DL (7-18); CALCIUM LEVEL 9.6 MG/DL (8.5-10.1); CARBON DIOXIDE LEVEL 22 MEQ/L (21-32); CHLORIDE LEVEL 103 MEQ/L (98-107); CPK CREATINE PHOSPHOKINASE 148 U/L (26-192); CREATININE FOR GFR 0.89 MG/DL (0.55-1.30); ETHYL ALCOHOL (ETHANOL) < 0.003 % (0.000-0.010); GLOMERULAR FILTRATION RATE > 60.0 (>60); GLUCOSE, FASTING 89 MG/DL (70-100); SALICYLATE LEVEL < 1.7 MG/DL (5.0-30.0); SODIUM LEVEL 138 MEQ/L (136-145); TOTAL PROTEIN 8.1 GM/DL (6.4-8.2)
[2020-05-29] MEDS ORDERED: NS 1,000 ML IV ONE (01:30)
[2020-05-29] MEDS ORDERED: CHARCOAL ACTIVATED LIQUID 25 GM/120 ML BTL PO ONE ×2 (01:30→04:30)
[2020-05-29 01:31] LABS: AMPHETAMINES LEVEL URINE POSITIVE (NEGATIVE); BARBITURATES URINE NEGATIVE (NEGATIVE); BENZODIAZEPINES URINE NEGATIVE (NEGATIVE); CANNABINOIDS URINE NEGATIVE (NEGATIVE); COCAINE METABOLITE URINE NEGATIVE (NEGATIVE); METHADONE URINE NEGATIVE (NEGATIVE); OPIATES URINE NEGATIVE (NEGATIVE); PHENCYCLIDINE URINE NEGATIVE (NEGATIVE)
[2020-05-29 01:32] LABS: INR 0.96
[2020-05-29] MEDS ORDERED: MAALOX 30 ML SUSP *UDC PO PRN (03:45)
[2020-05-29] MEDS ORDERED: MOM 30ML SUSPENSION UDC PO PRN (03:45)
[2020-05-29] MEDS ORDERED: ACETAMINOPHEN TAB 650MG DOSE (2X325MG) PO PRN (03:45)
--- NOTE | 2020-05-29 03:47 | HPEPDOC ---
[facility] Medical History & Physical Date of Admission May 29, 2020 Date of Service: May 29, 2020 Other Provider Bri Avilez MD History and Physical TIME OF SERVICE: 405 AM CHIEF COMPLAINT: Overdose HISTORY OF PRESENT ILLNESS: This 24-year-old female was brought into the hospital by her for evaluation after she claimed to have taken 8 pills of Klonopin, 8pills of Lexapro, 8 pills of BuSpar and 8 pills of Celexa. She has been up under a lot of stress because her recently filed for divorce. consulted poison control who recommended admission for observation for 24 hours and giving activated charcoal and giving a second dose, 4 hours after the first dose was administered. At the time of my evaluation she admitted to feeling dizzy, shaky, and having difficulties moving her legs. REVIEW OF SYSTEMS: 12 point review of systems negative except as listed in HPI PAST MEDICAL/ SURGICAL HISTORY: MDD DYLAN Borderline personality disorder Multiple history of suicide attempts SOCIAL HISTORY: Has a history of THC use. She doesn't smoke or use alcohol FAMILY HISTORY: Diverticulitis ALLERGIES: Please see below. HOME MEDICATIONS: Please see below. PHYSICAL EXAMINATION: Vital Signs Date Time Temp Pulse Resp B/P (MAP) Pulse Ox O2 Delivery O2 Flow Rate FiO2 05/29/20 00:35 135 20 125/91 (102) 100 Room Air 05/29/20 00:35 98.5 GEN: well-nourished / well developed/ anxious INTEGUMENT: not flushed/ not jaundice / has cuts on anterior aspect of her lower arms from cutting HEENT: lips covered in dark liquid /mucus membranes moist and pink CVS: RRR/NMRG/ radial pulses intact / no lower extremity edema LUNGS: able to speak full sentences without stopping to take a breath / lungs are clear to auscultation bilaterally on room air ABDOMEN: Contour (obese ) / soft & not tender with palpation MSK/EXTREMITIES: NCAT / range of motion intact in all 4 extremities NEURO: CN 2-12 are grossly intact / speech is not dysarthric / no asterixis PSYCH: alert and oriented to person place and time/ able to understand and follow all commands LABORATORY DATA: Laboratory Tests 05/29/20 00:43 05/29/20 00:43: Immature Granulocyte % (Auto) 0.6, Neutrophils (%) (Auto) 83.4H, Lymphocytes (%) (Auto) 11.4L, Monocytes (%) (Auto) 3.8, Eosinophils (%) (Auto) 0.5, Basophils (%) (Auto) 0.3, Neutrophils # (Auto) 12.7H, Lymphocytes # (Auto) 1.7, Monocytes # (Auto) 0.6, Eosinophils # (Auto) 0.1, Basophils # (Auto) 0.1, Nucleated Red Blood Cells % (auto) 0.0, Anion Gap 13, Glomerular Filtration Rate > 60.0, Calcium Level 9.6, Total Bilirubin 1.3H, Direct Bilirubin 0.2, Aspartate Amino Transf (AST/SGOT) 19, Alanine Aminotransferase (ALT/SGPT) 15, Alkaline Phosphatase 110, Total Creatine Kinase 148, Total Protein 8.1, Albumin 4.3, Albumin/Globulin Ratio 1.1L, Thyroid Stimulating Hormone (TSH) 0.850, Human Chorionic Gonadotropin, Qual NEGATIVE, Salicylates Level < 1.7L, Acetaminophen Level < 2.0L, Ethyl Alcohol Level < 0.003 05/29/20 00:44: Prothrombin Time 13.0, Prothromb Time International Ratio 0.96 05/29/20 00:55: Urine Opiates Screen NEGATIVE, Urine Methadone Screen NEGATIVE, Urine Barbiturates Screen NEGATIVE, Urine Phencyclidine Screen NEGATIVE, Urine Amphetamines Screen POSITIVEH, Urine Benzodiazepines Screen NEGATIVE, Urine Cocaine Metabolite Screen NEGATIVE, Urine Cannabinoids Screen NEGATIVE EKG: sinus tachycardia rate 136, QTc 412, TX 136 ASSESSMENT: Ms. Quispe is a 24-year-old with a history of MDD, DYLAN, and borderline p ersonality disorder, was brought to the hospital for evaluation after ingesting several pills including Klonopin, Lexapro, BuSpar and Celexa; she'll be admitted for observation pending psych eval. PLAN: 1. Multidrug OD She has a hx of borderline personality disorder. Her drug screen is only positiv e for amphetamines. Plan: Admit to medical floor/suicide watch/telemetry/IV fluids/give second dose of activated charcoal in the next hour / will ask the daytime team to consult psych 2. SIRS Possibly reactive due to medication OD and / or anxiety Plan: telemetry / IVF / monitor vitals 3. MDD Plan: hold meds pending completion of 24 H period of observation & Psych eval 4. DYLAN Plan: hold meds pending completion of 24 H period of observation & Psych eval 5. Class 1 Obesity BMI 31.7 complicates care Plan: f/u A1C / the pt can f/u w his or her PCP for bonbon dipper consult & to discuss exercise recommendations DVT PROPHYLAXIS: sitter DISPOSITION: possibly ARU after less than than 2 midnight's stay Home Medications Scheduled Bupropion HCl (Bupropion HCl Sr) 100 Mg Tab.sr.12h, 200 MG PO DAILY Bupropion Hcl (Bupropion HCl Sr) 100 Mg Tab.sr.12h, 100 MG PO QHS Citalopram Hydrobromide (Celexa) 20 Mg Tablet, 10 MG PO DAILY FROM 05/21/2020 TO 06/04/2020 PART OF TAPER REGIME (INCREASING DOSE). TAKES WITH ESCITALOPRAM (DECREASING). Escitalopram Oxalate (Escitalopram Oxalate) 10 Mg Tablet, 10 MG PO DAILY FROM 05/21/2020 TO 06/11/2020 PART OF TAPER REGIME (DECREASING DOSE). TAKES WITH CITALOPRAM (INCREASING). Scheduled PRN Clonazepam (Clonazepam) 0.5 Mg Tablet, 0.25 MG PO DAILY PRN for ANXIETY Doxylamine Succinate (Unisom Sleep Aid) 25 Mg Tablet, 25 MG PO QHS PRN for INSOMNIA Allergies Coded Allergies: Penicillins (Verified Allergy, Unknown, 10/07/18) amoxicillin (Verified Allergy, Unknown, 10/07/18) A-FIB/CHADSVASC A-FIB History Current/History of A-Fib/PAF?: No Current PO Anticoag Therapy: No ESTEVAN LEÓN MD May 29, 2020 03:47
[2020-05-29] MEDS: NS 1,000 ML IV SCH ×5 (03:54→23:27)
[2020-05-29] MEDS ORDERED: CELE20TA PO (04:30)
[2020-05-29] MEDS ORDERED: BUPR100T3 PO (04:30)
[2020-05-29] MEDS ORDERED: BUPR1TAB52 PO (04:30)
[2020-05-29] MEDS ORDERED: ESCI10TA2 PO (04:30)
[2020-05-29] MEDS ORDERED: UNIS25TA3 PO (04:30)
[2020-05-29] MEDS ORDERED: CLON0.5T2 PO (04:30)
[2020-05-29 04:33] LABS: HEMOGLOBIN A1c 4.7 %
[2020-05-29 05:40] VITALS: BP 128/79
--- NOTE | 2020-05-29 07:40 | ECGEPIP ---
[facility] - ED Test Date: 2020-05-29 Pat Name: HOLLY COSTA Department: Room: [place] [address] Gender: Female [employer] Laborer: oziel : 1995 Requested By: BRITNI PATEL Order Number: [id number] Reading MD: Massiel Butler Measurements Intervals Schurz Rate: 136 P: 31 OR: 136 QRS: 1 QRSD: 76 T: 33 QT: 332 QTc: 500 Interpretive Statements SINUS TACHYCARDIA NONSPECIFIC T-WAVE ABNORMALITY ABNORMAL RHYTHM ECG PRWP PROLONGED QTC, CLINICAL CORRELATION INCREASED RATE 01/11/20 Electronically Signed on 05-29-2020 7:40:16 EST by Massiel Butler
[2020-05-29 08:00] VITALS: BP 107/62
--- NOTE | 2020-05-29 10:20 | IPNPDOC ---
Text Note Date of Service The patient was seen on 05/29/20. NOTE Subjective: Patient is a 24-year-old female with a PMHx of Major Depressive Disorder / Generalized anxiety disorder / Borderline personality disorder, Hx of Suicidal attempts in the past who presented to the ER after she had called an ambulance after she had consumed pills of Klonopin, 8 pills of Lexapro, 8 pills of BuSpar and 8 pills of Celexa. . On arrival to emergency room, poison control was consulted who recommended observation for the next 24 hours. Patient was given active charcoal 2 doses. Hospital services called for further evaluation and treatment. Patient was seen and examined at the bedside. Currently patient denies any lightheadedness or dizziness. Denies any chest pain or palpitations. Reports some shortness of breath. Denies any abdominal pain, diarrhea, or urinary discomfort. Objective: Vitals (See below) General: Lying in bed, appears comfortable, AAOx3 HEENT: NC, AT CVS: +S1S2 Lungs: Fair air entry b/l, no appreciable wheezing, rhonchi or rales Abdomen: Soft, ND, NT Extremities: - Edema, - Calf tenderness Assessment and plan: Multidrug Overdose - 2/2 suicidal attempt - Patient has extensive psychiatric history including suicidal attempts in the past - She reports that she is recently and this has been causing a lot of stress for her - Drug screen noted to be positive for amphetamines - EKG reviewed QTc of 500 - will avoid any QTC prolonging medications - s/p Activated charcoal in the ER x 2 - Will check BMP / Mag - Will repeat EKG - Case was discussed between ER provider and poison control - will follow up recommendations - Psychiatry has been consulted today; will evaluate Major depression disorder / generalized anxiety disorder - Medications on hold (re: Overdose) - Psychiatry consulted; case discussed will evaluate today Class 1 Obesity - BMI 31.7 - Complicating medical care DVT prophylaxis - Will start TEDs/Sequentials Disposition: - Likely will need to inpatient mental health unit disposition - Psychiatry has been consulted Prema CASTRO I+O Prema CASTRO I+O Laboratory Tests 05/29/20 00:43 Vital Signs Date Time Temp Pulse Resp B/P (MAP) Pulse Ox O2 Delivery O2 Flow Rate FiO2 05/29/20 08:00 97.6 102 20 107/62 (77) 98 Room Air I&O- Last 24 Hours up to 6 AM 05/29/20 06:00 Intake Total 2100 ml Output Total 250 ml Balance 1850 ml DIVYA WU MD May 29, 2020 10:20
[2020-05-29 12:00] VITALS: BP 118/66
[2020-05-29 12:07] LABS: BLOOD UREA NITROGEN 5 MG/DL (7-18); CALCIUM LEVEL 8.3 MG/DL (8.5-10.1); CARBON DIOXIDE LEVEL 23 MEQ/L (21-32); CHLORIDE LEVEL 109 MEQ/L (98-107); CREATININE FOR GFR 1.09 MG/DL (0.55-1.30); GLOMERULAR FILTRATION RATE > 60.0 (>60); GLUCOSE, FASTING 82 MG/DL (70-100); POTASSIUM SERUM 3.6 MEQ/L (3.5-5.1); SODIUM LEVEL 140 MEQ/L (136-145)
--- NOTE | 2020-05-29 12:40 | MHCRPDOC ---
[facility] Consultation Consultation DATE OF CONSULTATION: 05/29/20 Patient still not medically cleared, please re-consult psychiatry once medically cleared for disposition. Recommend continuing one-to-one sitter until psychiatry eval Vital Signs Vital Signs Date Time Temp Pulse Resp B/P (MAP) Pulse Ox O2 Delivery O2 Flow Rate FiO2 05/29/20 12:00 97.8 97 16 118/66 (83) 98 Room Air Laboratory Data 24H Labs Laboratory Tests 2 05/29/20 00:43: Immature Granulocyte % (Auto) 0.6, Neutrophils (%) (Auto) 83.4H, Lymphocytes (%) (Auto) 11.4L, Monocytes (%) (Auto) 3.8, Eosinophils (%) (Auto) 0.5, Basophils (%) (Auto) 0.3, Neutrophils # (Auto) 12.7H, Lymphocytes # (Auto) 1.7, Monocytes # (Auto) 0.6, Eosinophils # (Auto) 0.1, Basophils # (Auto) 0.1, Nucleated Red Blood Cells % (auto) 0.0, Anion Gap 13, Glomerular Filtration Rate > 60.0, Estimated Mean Plasma Glucose 88, Hemoglobin A1c 4.7, Calcium Level 9.6, Total Bilirubin 1.3H, Direct Bilirubin 0.2, Aspartate Amino Transf (AST/SGOT) 19, Alanine Aminotransferase (ALT/SGPT) 15, Alkaline Phosphatase 110, Total Creatine Kinase 148, Total Protein 8.1, Albumin 4.3, Albumin/Globulin Ratio 1.1L, Thyroid Stimulating Hormone (TSH) 0.850, Human Chorionic Gonadotropin, Qual NEGATIVE, Salicylates Level < 1.7L, Acetaminophen Level < 2.0L, Ethyl Alcohol Level < 0.003 05/29/20 00:44: Prothrombin Time 13.0, Prothromb Time International Ratio 0.96 05/29/20 00:55: Urine Opiates Screen NEGATIVE, Urine Methadone Screen NEGATIVE, Urine Barbiturates Screen NEGATIVE, Urine Phencyclidine Screen NEGATIVE, Urine Amphetamines Screen POSITIVEH, Urine Benzodiazepines Screen NEGATIVE, Urine Cocaine Metabolite Screen NEGATIVE, Urine Cannabinoids Screen NEGATIVE 05/29/20 03:38: Coronavirus (COVID-19)(PCR) NEGATIVE 05/29/20 11:12: Anion Gap 8, Glomerular Filtration Rate > 60.0, Calcium Level 8.3L, Magnesium Level 2.0 Home Medications Current Medications Current Medications Medications (Trade) Dose Ordered Sig/Vianney Route PRN Reason Start Time Stop Time Status Last Admin Dose Admin Acetaminophen (Tylenol Tab) 650 mg Q4H PRN PO PAIN OR FEVER 05/29/20 03:45 Al Hydrox/Mg Hydrox/Simethicone (Mylanta) 30 ml DAILY PRN PO DYSPEPSIA 05/29/20 03:45 Home Med (Med Rec Complete!) ASDIRECTED XX 05/29/20 04:45 05/29/20 04:45 DC Magnesium Hydroxide (Milk Of Magnesia) 30 ml DAILY PRN PO CONSTIPATION 05/29/20 03:45 05/29/20 05:59 Sodium Chloride 1,000 ml @ 150 mls/hr Q6H40M IV 05/29/20 03:45 05/29/20 10:51 Scheduled Bupropion HCl (Bupropion HCl Sr) 100 Mg Tab.sr.12h, 200 MG PO DAILY, (Reported) Bupropion Hcl (Bupropion HCl Sr) 100 Mg Tab.sr.12h, 100 MG PO QHS, (Reported) Citalopram Hydrobromide (Celexa) 20 Mg Tablet, 10 MG PO DAILY, (Reported) FROM 05/21/2020 TO 06/04/2020 PART OF TAPER REGIME (INCREASING DOSE). TAKES WITH ESCITALOPRAM (DECREASING). Escitalopram Oxalate (Escitalopram Oxalate) 10 Mg Tablet, 10 MG PO DAILY, (Reported) FROM 05/21/2020 TO 06/11/2020 PART OF TAPER REGIME (DECREASING DOSE). TAKES WITH CITALOPRAM (INCREASING). Scheduled PRN Clonazepam (Clonazepam) 0.5 Mg Tablet, 0.25 MG PO DAILY PRN for ANXIETY, (Reported) Doxylamine Succinate (Unisom Sleep Aid) 25 Mg Tablet, 25 MG PO QHS PRN for INSOMNIA, (Reported) Allergies Coded Allergies: Penicillins (Verified Allergy, Unknown, 10/07/18) amoxicillin (Verified Allergy, Unknown, 10/07/18) RUDDY DEARS DO May 29, 2020 12:40
[2020-05-29 16:00] VITALS: BP 107/58
[2020-05-29 20:00] VITALS: BP 119/78
[2020-05-30] VITALS: BP 122/69
[2020-05-30] MEDS ORDERED: ANALGESIC BALM CRM 120 GM TOP PRN (00:30)
[2020-05-30 04:00] VITALS: BP 127/77
[2020-05-30 04:42] LABS: MEAN CORPUSCULAR HEMOGLOBIN 29.6 pg (27.0-33.0); MEAN CORPUSCULAR HGB CONC 33.2 g/dl (32.0-36.5); MEAN CORPUSCULAR VOLUME 88.9 fl (80.0-96.0); PLATELET COUNT, AUTOMATED 250 10^3/uL (150-450); RED BLOOD COUNT 4.16 10^6/uL (4.00-5.40); WHITE BLOOD COUNT 7.7 10^3/uL (4.0-10.0)
[2020-05-30 04:53] LABS: BLOOD UREA NITROGEN 3 MG/DL (7-18); CALCIUM LEVEL 8.5 MG/DL (8.5-10.1); CARBON DIOXIDE LEVEL 25 MEQ/L (21-32); CHLORIDE LEVEL 108 MEQ/L (98-107); CREATININE FOR GFR 0.74 MG/DL (0.55-1.30); GLOMERULAR FILTRATION RATE > 60.0 (>60); GLUCOSE, FASTING 77 MG/DL (70-100); POTASSIUM SERUM 3.8 MEQ/L (3.5-5.1); SODIUM LEVEL 140 MEQ/L (136-145)
[2020-05-30 05:13] LABS: HEMOGLOBIN 12.3 g/dl (12.0-15.5)
[2020-05-30] MEDS ORDERED: diphenhydrAMINE 25MG CAP PO ONE (06:00)
[2020-05-30] MEDS: NS 1,000 ML IV SCH (06:16)
[2020-05-30 07:43] VITALS: BP 131/93
--- NOTE | 2020-05-30 08:57 | DS.PDOC ---
Discharge Summary General Date of Admission May 29, 2020 at 00:33 Date of Discharge 05/30/20 Specialist/Consultants Involve Psychiatry Discharge Summary PROCEDURES PERFORMED DURING STAY: [None]. DISCHARGE DIAGNOSES: #intentional drug overdose - suicide attempt #MDD, DYLAN, BPD #history of suicide attempts COMPLICATIONS/CHIEF COMPLAINT: Overdose,Sirs. HISTORY OF PRESENT ILLNESS: 24F brought to the hospital by her for evaluation after she described an intentional drug overdose as a suicide attempt, and claimed to have taken 8 pills of Klonopin, 8pills of Lexapro, 8 pills of BuSpar and 8 pills of Celexa. She has been up under a lot of stress because her recently filed for divorce. consulted poison control who recommended admission for observation for 24 hours and giving activated charcoal and giving a second dose, 4 hours after the first dose was administered. At the time of my evaluation she admitted to feeling dizzy, shaky, and having difficulties moving her legs. HOSPITAL COURSE: DISCHARGE MEDICATIONS: Please see below. ALLERGIES: Please see below. PHYSICAL EXAMINATION ON DISCHARGE: VITAL SIGNS: Please see below. GEN: well-nourished / well developed/ anxious INTEGUMENT: not flushed/ not jaundice / has cuts on anterior aspect of her lower arms from cutting HEENT: lips covered in dark liquid /mucus membranes moist and pink CVS: RRR/NMRG/ radial pulses intact / no lower extremity edema LUNGS: able to speak full sentences without stopping to take a breath / lungs are clear to auscultation bilaterally on room air ABDOMEN: Contour (obese ) / soft & not tender with palpation MSK/EXTREMITIES: NCAT / range of motion intact in all 4 extremities NEURO: CN 2-12 are grossly intact / speech is not dysarthric / no asterixis PSYCH: alert and oriented to person place and time/ able to understand and follow all commands LABORATORY DATA: Please see below. ACTIVITY: [As tolerated]. DIET: Regular DISPOSITION: Discharge to [facility]. ITEMS TO FOLLOWUP ON ON OUTPATIENT: 1. PCP in 3-5 days after discharge from hospital 2. Follow psychiatry as directed TIME SPENT ON DISCHARGE: 35 minutes. Vital Signs/I&Os Vital Signs Date Time Temp Pulse Resp B/P (MAP) Pulse Ox O2 Delivery O2 Flow Rate FiO2 05/30/20 07:43 98.9 92 18 131/93 (106) 97 Room Air I&O- Last 24 Hours up to 6 AM 05/30/20 06:00 Intake Total 2620 ml Output Total 3700 ml Balance -1080 ml Laboratory Data Labs 24H Laboratory Tests 2 05/29/20 11:12: Anion Gap 8, Glomerular Filtration Rate > 60.0, Calcium Level 8.3L, Magnesium Level 2.0 05/30/20 04:12: Anion Gap 7L, Glomerular Filtration Rate > 60.0, Calcium Level 8.5, Nucleated Red Blood Cells % (auto) 0.0 CBC/BMP Laboratory Tests 05/29/20 11:12 05/30/20 04:12 Discharge Medications Scheduled Bupropion HCl (Bupropion HCl Sr) 100 Mg Tab.sr.12h, 200 MG PO DAILY, (Reported) Bupropion Hcl (Bupropion HCl Sr) 100 Mg Tab.sr.12h, 100 MG PO QHS, (Reported) Citalopram Hydrobromide (Celexa) 20 Mg Tablet, 10 MG PO DAILY, (Reported) FROM 05/21/2020 TO 06/04/2020 PART OF TAPER REGIME (INCREASING DOSE). TAKES WITH ESCITALOPRAM (DECREASING). Escitalopram Oxalate (Escitalopram Oxalate) 10 Mg Tablet, 10 MG PO DAILY, (Reported) FROM 05/21/2020 TO 06/11/2020 PART OF TAPER REGIME (DECREASING DOSE). TAKES WITH CITALOPRAM (INCREASING). Scheduled PRN Clonazepam (Clonazepam) 0.5 Mg Tablet, 0.25 MG PO DAILY PRN for ANXIETY, (Reported) Doxylamine Succinate (Unisom Sleep Aid) 25 Mg Tablet, 25 MG PO QHS PRN for INSO MNIA, (Reported) Allergies Coded Allergies: Penicillins (Verified Allergy, Unknown, 10/07/18) amoxicillin (Verified Allergy, Unknown, 10/07/18) EFRAIN QUESADA MD May 30, 2020 08:56
--- NOTE | 2020-05-30 09:50 | MHCRPDOC ---
[facility] Consultation Consultation DATE OF CONSULTATION: 05/30/20 CONSULTATION REQUESTED BY: Internal medicine service REASON FOR CONSULTATION: Overdose. RELEVANT HISTORY: The patient a well-known 24-year-old woman with a history of DYLAN, borderline personality disorder presents after overdosing on multiple to her medications cling Celexa, Wellbutrin and clonazepam. She reportedly had taken these and had presented to [facility] after reporting these concerns to her ex-. She reports that she has had difficulty since their separation several weeks ago, she describes that she feels her depression is well controlled but her anxiety is not. She reports she is feeling better and is remorseful, somewhat upset about being admitted.. PAST PSYCHIATRIC HISTORY: History of DYLAN/MDD, reports a diagnosis of borderline personality disorder currently seem to be [facility], currently on Celexa, with cross titration Prozac, on when necessary clonazepam, has a history of overdose in the past with the admission in January 2020 FAMILY HISTORY: No change from previous admission PERSONAL AND SOCIAL HISTORY: The patient was born and raised in [place]. Resides in: [place] Marital Status: Recently Children: Denies Employment: Independent artist SUBSTANCE ABUSE HISTORY: Smoking: Reports cannabis use in the past but none currently ETOH: Denies Illicit Drugs: Denies LEGAL HISTORY: None significant. MENTAL STATUS EXAMINATION: General: [Well dressed with good hygiene] Speech: [Spontaneous and fluid] Thought processes: [Linear and logical] Thought content: [Future orientated] Abstract reasoning, and computation: [Intact] Description of associations: [Intact] Description of abnormal or psychotic thoughts:[Denies any suicidal or homicidal ideation. Denies any auditory or visual hallucinations. Does not appear to be r esponding to internal stimuli. Does not appear to be endorsing any bizarre or paranoid ideation.] Judgment: Poor Insight: Poor Orientation: [Alert and orientated 3] Recent and remote memory: [Intact] Attention span and concentration: [Intact] Fund of knowledge: [Adequate] Mood: I want to go" Affect: Dysthymic DIAGNOSIS: 1. MDD, unspecified. PLAN: 1. Admitted to inpatient unit. 2. Repeat EKG, QTC is 500 on last. Vital Signs Vital Signs Date Time Temp Pulse Resp B/P (MAP) Pulse Ox O2 Delivery O2 Flow Rate FiO2 05/30/20 07:43 98.9 92 18 131/93 (106) 97 Room Air Laboratory Data 24H Labs Laboratory Tests 2 05/29/20 11:12: Anion Gap 8, Glomerular Filtration Rate > 60.0, Calcium Level 8.3L, Magnesium Level 2.0 05/30/20 04:12: Anion Gap 7L, Glomerular Filtration Rate > 60.0, Calcium Level 8.5, Nucleated Red Blood Cells % (auto) 0.0 Home Medications Current Medications Current Medications Medications (Trade) Dose Ordered Sig/Vianney Route PRN Reason Start Time Stop Time Status Last Admin Dose Admin Acetaminophen (Tylenol Tab) 650 mg Q4H PRN PO PAIN OR FEVER 05/29/20 03:45 Al Hydrox/Mg Hydrox/Simethicone (Mylanta) 30 ml DAILY PRN PO DYSPEPSIA 05/29/20 03:45 Home Med (Med Rec Complete!) ASDIRECTED XX 05/29/20 04:45 05/29/20 04:45 DC Magnesium Hydroxide (Milk Of Magnesia) 30 ml DAILY PRN PO CONSTIPATION 05/29/20 03:45 05/29/20 05:59 Menthol/Methyl Salicylate (Bengay Cream) Please apply to R shoulder Q6HP PRN TOP PAIN 05/30/20 00:30 05/30/20 03:02 Sodium Chloride 1,000 ml @ 150 mls/hr Q6H40M IV 05/29/20 03:45 05/30/20 06:16 Allergies Coded Allergies: Penicillins (Verified Allergy, Unknown, 10/07/18) amoxicillin (Verified Allergy, Unknown, 10/07/18) RUDDY DERAS DO May 30, 2020 09:50
[2020-05-30 11:51] VITALS: BP 144/93
--- NOTE | 2020-06-02 07:09 | ECGEPIP ---
[facility] Test Date: 2020-05-29 Pat Name: HOLLY COSTA Department: Room: [place] [address] Gender: Female Iso Coordinator: ERNESTINE : 1995 Requested By: DIVYA WU Order Number: [id number] Reading MD: Alonso Polanco Measurements Intervals [place] Rate: 91 P: 17 RI: 134 QRS: 15 QRSD: 80 T: 56 QT: 386 QTc: 475 Interpretive Statements SINUS RHYTHM LOW QRS VOLTAGE IN PRECORDIAL LEADS NONSPECIFIC T-WAVE ABNORMALITY COMPARED TO 0:46 SAME DAY HR IS SLOWER Electronically Signed on 06-02-2020 7:08:43 EST by Alonso Polanco
--- NOTE | 2020-06-02 07:12 | ECGEPIP ---
[facility] Test Date: 2020-05-30 Pat Name: HOLLY COSTA Department: Room: [place] [address] Gender: Female Pediatric Assistant: : 1995 Requested By: DIVYA WU Order Number: [id number] Reading MD: Alonso Polanco Measurements Intervals [place] Rate: 81 P: 16 MN: 145 QRS: 19 QRSD: 82 T: 25 QT: 394 QTc: 460 Interpretive Statements SINUS RHYTHM NONSPECIFIC STT-WAVE ABNORMALITY SIMILAR TO 05/29/20 Electronically Signed on 06-02-2020 7:12:20 EST by Alonso Polanco
--- NOTE | 2020-06-02 07:14 | ECGEPIP ---
[facility] Test Date: 2020-05-30 Pat Name: HOLLY COSTA Department: Room: [place] [address] Gender: Female Director Of Provider Relations: ANDRIY : 1995 Requested By: EFRAIN Figueroa Order Number: [id number] Reading MD: Alonso Polanco Measurements Intervals [place] Rate: 80 P: 16 MA: 143 QRS: 26 QRSD: 79 T: 44 QT: 400 QTc: 463 Interpretive Statements SINUS RHYTHM SIMILAR TO 05/30/20 Electronically Signed on 06-02-2020 7:14:41 EST by Alonso Polanco
== END 2020-05-30 16:55 ==
LOC: M ED 00:32 → M ED INP 00:33 → ENRESERV 05:11 → M PCU 05:35
PROVIDERS: ADMIT Internal Medicine; ATTEND Internal Medicine
DX: T14.91XA Suicide attempt, initial encounter (principal); T42.4X2A Poisoning by benzodiazepines, intentional self-harm, initial encounter; T50.992A Poisoning by other drugs, medicaments and biological substances, intentional self-harm, initial encounter; R65.10 Systemic inflammatory response syndrome (SIRS) of non-infectious origin without acute organ dysfunction; F33.9 Major depressive disorder, recurrent, unspecified; F41.1 Generalized anxiety disorder; F60.3 Borderline personality disorder; E66.9 Obesity, unspecified; Z88.0 Allergy status to penicillin; Z79.899 Other long term (current) drug therapy; Y92.89 Other specified places as the place of occurrence of the external cause
CPT/HCPCS: 36415; 80048; 80076; 80307; 82550; 83036; 83735; 84443; 84703; 85025; 85027; 85610; 93005; 93041; 94760; 96361; 96374; 99285; G0480; U0002

== ENCOUNTER 2020-05-30 10:59 | Inpatient (IN) | payer SELFPAY ==
[~2020-05-30] VITALS: Ht 157.5 cm; Wt 78.5 kg
[~2020-05-30 10:59] MED LIST changes: +BUPR100T3 PO; +BUPR1TAB52; +BUPR1TAB52 PO; +CELE20TA PO; +CITA20TA6; +ESCI10TA2; +ESCI10TA2 PO; +UNIS25TA3 PO
[2020-05-30] MEDS ORDERED: traZODone 50 MG TAB PO PRN (13:45)
[2020-05-30] MEDS ORDERED: MOM 30ML SUSPENSION UDC PO PRN (13:45)
[2020-05-30] MEDS ORDERED: ACETAMINOPHEN TAB 650MG DOSE (2X325MG) PO PRN (13:45)
[2020-05-30] MEDS ORDERED: MAALOX 30 ML SUSP *UDC PO PRN (13:45)
[2020-05-30 18:22] VITALS: BP 140/88
[2020-05-31 06:42] VITALS: BP 133/63
[2020-05-31] MEDS ORDERED: INFLUENZA QUADRIVALENT PF VACCINE 0.5ML SYRINGE IM ONE (09:00)
--- NOTE | 2020-05-31 11:42 | HPEPDOC ---
[facility] Medical History & Physical Date of Admission May 30, 2020 Date of Service: May 31, 2020 History and Physical CHIEF COMPLAINT: Suicidal Ideation HISTORY OF PRESENT ILLNESS: 24F admitted to [facility] for further observation for intentional drug overdose as a suicide attempt. She claimed to have taken 8 pil ls of Klonopin, 8pills of Lexapro, 8 pills of BuSpar and 8 pills of Celexa. She states she has been under a lot of stress because her recently filed for divorce. This morning she denies any medical complaints. Denies chest pain, shortness of breath, headaches, N/V/D, abdominal pain. PAST MEDICAL HISTORY: #MDD, DYLAN, BPD #history of suicide attempts ALLERGIES: Please see below. REVIEW OF SYSTEMS: Negative except as per HPI. HOME MEDICATIONS: Please see below. PHYSICAL EXAMINATION: VITAL SIGNS: See below General: NAD, sitting comfortably in chair HEENT: NC/AT, EOMI, PERRL Lungs: CTA B/L Heart: +S1S2, RRR Abd: soft, obese, NT, +BS Ext: no edema LABORATORY DATA: See below. MICROBIOLOGY: Please see below. A/P: 24F admitted to [facility] for further evaluation for intentional drug overdose/suicide attempt. #SI - as per primary team - psychiatry #psych - MDD, DYLAN, BP - as per primary team Thank you for this consultation. please re-consult as needed. Vital Signs Vital Signs Date Time Temp Pulse Resp B/P (MAP) Pulse Ox O2 Delivery O2 Flow Rate FiO2 05/31/20 06:42 98.9 78 18 133/63 (86) 100 Room Air Allergies Coded Allergies: Penicillins (Verified Allergy, Unknown, 10/07/18) amoxicillin (Verified Allergy, Unknown, 10/07/18) A-FIB/CHADSVASC A-FIB History Current/History of A-Fib/PAF?: No EFRAIN QUESADA MD May 31, 2020 11:42
--- NOTE | 2020-05-31 12:23 | MHHPEPDOC ---
General Date Of Admission: May 30, 2020 Legal Status: 9.39 Chief Complaint "I'm sorry I was upset. History of Present Illness HISTORY OF THE PRESENT ILLNESS: Patient is a 24 -year-old , female, who presented to [facility] after overdosing on several different medications, she had been seen on the floor by this provider where she was triaged for admission. She was somewhat upset about being admitted but overall reports that she is talked about with her nurse and understands the rationale. She reports having increasing anxiety due to multiple stressors especially breaking up with her . She reports that she had taken the overdose and suddenly regretted it hauling her ex to transport her to the hospital. She required multiple days on the medical floor for clearance.. Psychiatric Review of Systems Depression (2 or more weeks): depressed mood Mary (4 or more days of): denies Psychosis: denies Anxiety: situational anxiety, stressor related anxiety Past Psychiatric History Previous Psychiatric Diagnosis: DYLAN/MDD and borderline personality disorder. Previous Psychiatric Admissions: Last several months ago. Suicide Attempts: Episodes in the past of overdose. Psychiatric Follow-up: Vasyl Ying at [facility]. Psychiatric medications: Wellbutrin and clonazepam with a cross titration to Prozac. Past Medical History Medical Problems Noncontributory Family Medical/Psychiatric HX Medical Problems No change from previous Addiction History denies (reports cannabis use in the past) Social History Current Living Situation: Living with roommate. Education: High school education. Employment: Independent artist. Social Support: Few. Legal: None reported. Marital: Recently no children. Mental Status Examination General Appearance: well groomed Build: average Demeanor: average Eye Contact: average Activity: average Behavior: cooperative Speech: clear Mood: depressed Affect: constricted Thought Process: logical/linear Thought Content (Delusions): none reported, denies SI, HI, AVH Thought Content (Aggressive): none reported Perception (Hallucinations): none reported Perception (Other): none reported Cognition (Impairment of): none reported Cognition(Intelligence Est.): above average Insight: fair Judgment: Fair Psychosis: Denies A-FIB/CHADSVASC A-FIB History Current/History of A-Fib/PAF?: No Assessment The patient presents today after being admitted, it appears that her QTC was quite high when she when she was admitted, unable to find repeated EKG to monitor QTC. The patient is currently off her medications for observation will likely restart Wellbutrin and Prozac once I'm sure her QTC is trending down. Problem List Problems: (1) Adjustment reaction, depressive, brief Status: Acute Response to Treatment: Improving (2) Borderline personality disorder in adult Status: Chronic (3) Major depressive disorder, recurrent Status: Chronic Problem Text: We'll restart medications once QTC is confirmed to be improving Initial Treatment Plan 1. Patient was admitted on a [9.39] status. 2. Complete history was obtained. 3. With patients permission, family will be contacted and database will be expanded. 4. Patients medication regimen will be reviewed and changed accordingly. 5. Patient will be provided with protected environment. 6. Patient will be treated with individual, group, and milieu therapies. 7. Patient will receive supportive psych-education. 8. Discharge planning will commence immediately. 9. Outpatient follow-up treatment will be strongly recommended. 10. The initial treatment plan will focus initially on: * Depression. * Risk for suicide. ESTIMATED LENGTH OF STAY: 2-4 DAYS. TIME SPENT COUNSELING AND COORDINATING INITIAL CARE: 30 minutes. Vital Signs Vital Signs Date Time Temp Pulse Resp B/P (MAP) Pulse Ox O2 Delivery O2 Flow Rate FiO2 05/31/20 06:42 98.9 78 18 133/63 (86) 100 Room Air Allergies Coded Allergies: Penicillins (Verified Allergy, Unknown, 10/07/18) amoxicillin (Verified Allergy, Unknown, 10/07/18) RUDDY DERAS DO May 31, 2020 12:23
[2020-05-31 16:10] VITALS: BP 138/75
[2020-05-31] MEDS: OLANZapine ORAL DISINTEGRATING TAB 5MG PO PRN (21:47)
[2020-06-01 06:30] VITALS: BP 108/59
--- NOTE | 2020-06-01 11:22 | MHIPNPDOC ---
[facility] Progress Note Progress Note DATE OF SERVICE: 06/01/20 HISTORY: the patient is met with today, she reports she is feeling better, denying any significant depression and suicidal thoughts. She is been off the medications as EKG has not been available. She reports showed she is still interested about going tomorrow, staff report somewhat isolative. VITAL SIGNS: See below. NEW TEST RESULTS: new EKG QTC 408 CURRENT MEDICATIONS: See below. MENTAL STATUS EXAMINATION: General: [Well dressed with good hygiene] Speech: [Spontaneous and fluid] Thought processes: [Linear and logical] Thought content: [Future orientated] Abstract reasoning, and computation: [Intact] Description of associations: [Intact] Description of abnormal or psychotic thoughts:[Denies any suicidal or homicidal ideation. Denies any auditory or visual hallucinations. Does not appear to be responding to internal stimuli. Does not appear to be endorsing any bizarre or paranoid ideation.] Judgment: [fair] Insight: [fair] Orientation: [Alert and orientated 3] Recent and remote memory: [Intact] Attention span and concentration: [Intact] Fund of knowledge: [Adequate] Mood: ["okay"] Affect: mildly dysthymic DIAGNOSES: 1. MDD, recurrent, unspecified. 2. DYLAN. 3. BPD. ASSESSMENT: patient will need to be resumed on medications QTC on newest EKG is within normal range MANAGEMENT PLAN:. Restart Prozac 10 mg daily and Wellbutrin 150 mg daily, will defer on Klonopin as it is likely disinhibited her TIME SPENT: 15 minutes. Vital Signs Vital Signs Date Time Temp Pulse Resp B/P (MAP) Pulse Ox O2 Delivery O2 Flow Rate FiO2 06/01/20 06:30 98.7 75 14 108/59 (75) 05/31/20 16:10 99 Room Air Current Medications Current Medications Medications (Trade) Dose Ordered Sig/Vianney Route PRN Reason Start Time Stop Time Status Last Admin Dose Admin Acetaminophen (Tylenol Tab) 650 mg Q6HP PRN PO HEADACHE or DISCOMFORT 05/30/20 13:45 Al Hydrox/Mg Hydrox/Simethicone (Mylanta) 30 ml Q4HP PRN PO HEARTBURN/INDIGESTION 05/30/20 13:45 Magnesium Hydroxide (Milk Of Magnesia) 30 ml DAILYPRN PRN PO CONSTIPATION 11/27/20 13:45 Olanzapine (ZyPREXA ZYDIS) 5 mg Q6HP PRN PO AGITATION 05/30/20 13:45 05/31/20 21:47 Trazodone HCl (Desyrel) 50 mg QHSP PRN PO INSOMNIA 05/30/20 13:45 05/31/20 21:47 Allergies Coded Allergies: Penicillins (Verified Allergy, Unknown, 10/07/18) amoxicillin (Verified Allergy, Unknown, 10/07/18) RUDDY DERAS DO Jun 01, 2020 11:22
[2020-06-01] MEDS ORDERED: buPROPion **XL** TABLET 150MG (WELLBUTRIN XL) PO ONE (13:15)
[2020-06-01] MEDS ORDERED: FLUoxetine 10 MG CAP PO ONE (13:15)
[2020-06-01 16:07] VITALS: BP 100/60
[2020-06-02] MEDS: OLANZapine ORAL DISINTEGRATING TAB 5MG PO PRN ×2 (05:12→17:36)
[2020-06-02 06:23] VITALS: BP 121/57
--- NOTE | 2020-06-02 07:29 | ECGEPIP ---
[facility] Test Date: 2020-06-01 Pat Name: HOLLY COSTA Department: Room: [place] [address] Gender: Female Certified Activities Director: : 1995 Requested By: RUDDY DERAS Order Number: [id number] Reading MD: Alonso Polanco Measurements Intervals [place] Rate: 63 P: 18 WV: 146 QRS: 28 QRSD: 103 T: 64 QT: 408 QTc: 418 Interpretive Statements SINUS RHYTHM LOW QRS VOLTAGE IN PRECORDIAL LEADS NONSPECIFIC ST & T-WAVE ABNORMALITY SIMILAR TO 05/30/20 Electronically Signed on 06-02-2020 7:29:25 EST by Alonso Polanco
[2020-06-02] MEDS: buPROPion **XL** TABLET 150MG (WELLBUTRIN XL) PO SCH (08:31)
[2020-06-02] MEDS: FLUoxetine 10 MG CAP PO SCH (08:32)
--- NOTE | 2020-06-02 10:30 | MHIPNPDOC ---
[facility] Progress Note Progress Note DATE OF SERVICE: 06/02/20 HISTORY: the patient is met with today, she reports she feels fairly sedated by the trazodone that she had taken the previous evening, she is fairly tired to day, and a brief meeting is done as she is fairly sleepy. She reports that she is feeling somewhat better on the Prozac and Wellbutrin, without any significant side effects. VITAL SIGNS: See below. NEW TEST RESULTS: none. CURRENT MEDICATIONS: See below. MENTAL STATUS EXAMINATION: General: sleepy, in bed Speech: [Spontaneous and fluid] Thought processes: [Linear and logical] Thought content: [Future orientated] Abstract reasoning, and computation: [Intact] Description of associations: [Intact] Description of abnormal or psychotic thoughts:[Denies any suicidal or homicidal ideation. Denies any auditory or visual hallucinations. Does not appear to be responding to internal stimuli. Does not appear to be endorsing any bizarre or paranoid ideation.] Judgment: [fair] Insight: [fair] Orientation: sleepy and tired Recent and remote memory: [Intact] Attention span and concentration: impaired secondary to sleepiness Fund of knowledge: [Adequate] Mood: ["okay"] Affect: [Euthymic with a full range] DIAGNOSES: 1. MDD, recurrent, unspecified. 2. DYLAN. 3. BPD. ASSESSMENT: the patient appears to be oversedated by the trazodone, will change that to Rozerem as it will likely cause less sedation for her, will observed overnight. She has been denying suicidality and appears to be having an adverse reaction today, wish to have more observation time before discharge to observe her without overt sedation, as it could mask subtle signs of depression MANAGEMENT PLAN: continue Prozac 10 mg daily and Wellbutrin 150 mg of extended release daily. Rozerem 8 mg QHS TIME SPENT: 10 minutes. Vital Signs Vital Signs Date Time Temp Pulse Resp B/P (MAP) Pulse Ox O2 Delivery O2 Flow Rate FiO2 06/02/20 06:23 97.4 80 16 121/57 (78) 06/01/20 16:07 100 Room Air Current Medications Current Medications Medications (Trade) Dose Ordered Sig/Vianney Route PRN Reason Start Time Stop Time Status Last Admin Dose Admin Acetaminophen (Tylenol Tab) 650 mg Q6HP PRN PO HEADACHE or DISCOMFORT 05/30/20 13:45 Al Hydrox/Mg Hydrox/Simethicone (Mylanta) 30 ml Q4HP PRN PO HEARTBURN/INDIGESTION 05/30/20 13:45 Bupropion HCl (Wellbutrin Xl) 150 mg DAILY PO 06/02/20 09:00 06/02/20 08:31 Fluoxetine HCl (PROzac) 10 mg DAILY PO 06/02/20 09:00 06/02/20 08:32 Magnesium Hydroxide (Milk Of Magnesia) 30 ml DAILYPRN PRN PO CONSTIPATION 05/30/20 13:45 Olanzapine (ZyPREXA ZYDIS) 5 mg Q6HP PRN PO AGITATION 05/30/20 13:45 06/02/20 05:12 Trazodone HCl (Desyrel) 50 mg QHSP PRN PO INSOMNIA 05/30/20 13:45 05/31/20 21:47 Allergies Coded Allergies: Penicillins (Verified Allergy, Unknown, 10/07/18) amoxicillin (Verified Allergy, Unknown, 10/07/18) RUDDY DERAS DO Jun 02, 2020 10:29
[2020-06-02 18:00] VITALS: BP 125/83
[2020-06-02] MEDS ORDERED: RAMELTEON 8 MG TAB (ROZEREM) PO SCH (21:00)
[2020-06-03 06:29] VITALS: BP 122/80
[2020-06-03] MEDS: buPROPion **XL** TABLET 150MG (WELLBUTRIN XL) PO SCH (08:30)
[2020-06-03] MEDS: FLUoxetine 10 MG CAP PO SCH (08:30)
--- NOTE | 2020-06-03 10:42 | MHDSPDOC ---
[facility] Discharge Summary Discharge Summary DATE OF ADMISSION: May 30, 2020 at 17:08 DATE OF DISCHARGE: Jun 03, 2020 at 12:25 DISCHARGE DIAGNOSES: MDD, recurrent, unspecified DYLAN BPD CONSULTANTS INVOLVED:[ None (basic hospitalist screening)] REASON FOR ADMISSION & TREATMENT AND PROGRESS ON THE UNIT : The patient was admitted to the inpatient health unit after overdosing on some of her medications, she reported that she had no suicidal ideation and was somewhat upset about being admitted. The patient was admitted at first held off on any medication as her QTC was 500, this was repeated of which showed her QTC within the normal range. The patient was originally triaged restart on medication. However, she had taken trazodone, which left her very sedated the 2nd day, making her fairly groggy and unable to assess an improvement from Prozac 10 mg daily and Wellbutrin 150 mg's daily. She was not resumed on Klonopin, as this would likely be disinhibited in her. She did well made great improvement her ex-spouse whom she is closest with, reported that she sounded better that she hasn't quite some time, she was observed for several days out of an abundance of caution due to the overdose and the history of BPD. She did quite well and stabilize without any issue. DISCHARGE ASSESSMENT[improved] Legal status considerations: The patient at the time of discharge did not meet criteria for involuntary admission/extension due to having a [normal] mental status exam, [fair] insight into the situation, They are engaged in the discharge process, as well as being friendly and amenable in behavioral control and havent been engaging in any observed concerning behavior or ideation recently. They decline voluntary extension/admission at this time and must be discharged in good shawn, as Im unable to make a case for holding the patient against their will. They may have historical risk factors of admissions and other interactions with psychiatry however, those are not modifiable from a clinical perspective. The patient will need to be discharged in good shawn. MENTAL STATUS EXAMINATION ON DISCHARGE: [General: Well dressed with good hygiene Speech: Spontaneous and fluid Thought processes: Linear and logical Thought content: Future orientated Abstract reasoning, and computation: Intact Description of associations: Intact Description of abnormal or psychotic thoughts:Denies any suicidal or homicidal ideation. Denies any auditory or visual hallucinations. Does not appear to be responding to internal stimuli. Does not appear to be endorsing any bizarre or paranoid ideation. Judgment: fair Insight: fair Orientation: Alert and orientated 3 Recent and remote memory: Intact Attention span and concentration: Intact Fund of knowledge: Adequate Mood: "okay" Affect: Euthymic with a full range] PLAN/FOLLOWUP ARRANGEMENTS: Follow up appointments made (PCP and MH in 5 days of D/C date) and safety plan completed. Safety Planning aspects completed prior to discharge [Medication supplies limited to 7 days with 4 refills to prevent accumulation to OD] [Family contact completed, educated on safe practices, instructed on removal and mitigation of dangerous means] [RN reviewed crisis hotline information and other aspects to empower patient to access care in interim before next appointment.] The amount of time spent in the coordination of care for this patient was approximately 30 minutes. Vital Signs/I&Os Vital Signs Date Time Temp Pulse Resp B/P (MAP) Pulse Ox O2 Delivery O2 Flow Rate FiO2 06/03/20 06:29 97.8 91 16 122/80 (94) 06/01/20 16:07 100 Room Air Medications Scheduled Bupropion Hcl (Bupropion Xl) 150 Mg Tab.er.24h, 150 MG PO DAILY for mood for 7 Days, #7 Fluoxetine Hcl (Fluoxetine HCl) 10 Mg Capsule, 10 MG PO DAILY for mood for 7 Days, #7 Allergies Coded Allergies: Penicillins (Verified Allergy, Unknown, 10/07/18) amoxicillin (Verified Allergy, Unknown, 10/07/18) RUDDY DERAS DO Jun 03, 2020 10:42
[2020-06-03] MEDS ORDERED: BUPR150T3 PO (11:09)
[2020-06-03] MEDS ORDERED: FLUO10CA16 PO (11:09)
== END 2020-06-03 12:25 | disposition home or self-care (01) | DRG 751 ==
LOC: M PSY 17:08
PROVIDERS: ADMIT Psychiatry & Neurology Addiction Medicine; ATTEND Psychiatry & Neurology Addiction Medicine
DX: F33.9 Major depressive disorder, recurrent, unspecified (principal); F41.1 Generalized anxiety disorder; Z88.0 Allergy status to penicillin

== ENCOUNTER → 2020-07-12 | Outpatient (CLI) | payer SELFPAY ==
[~2020-07-12] MED LIST changes: +BUPR150T3 PO; +FLUO10CA16 PO
== END ==
LOC: M LABSMTC 12:44
PROVIDERS: ATTEND Pediatrics
DX: Z20.822 Contact with and (suspected) exposure to COVID-19 (principal)

== ENCOUNTER → 2020-07-23 | Outpatient (CLI) | payer SELFPAY ==
[~2020-07-23] MED LIST changes: -BUPR150T3 PO; +BUPR150T4 PO; +ESCI10TA16; +ESCI10TA16 PO; -ESCI10TA2; -ESCI10TA2 PO; -QUET1TAB7 PO; +QUET25TA3 PO
== END ==
LOC: M LABSMTC 14:04
PROVIDERS: ATTEND Pediatrics
DX: Z20.822 Contact with and (suspected) exposure to COVID-19 (principal)

== ENCOUNTER → 2020-09-15 | Outpatient (CLI) | payer SELFPAY ==
[~2020-09-15] MED LIST changes: +BUPR150T12 PO; -BUPR150T4 PO
== END ==
LOC: M LABSMTC 14:24
PROVIDERS: ATTEND Pediatrics
DX: Z20.822 Contact with and (suspected) exposure to COVID-19 (principal)

== ENCOUNTER 2021-05-13 14:59 | Inpatient (IN) | payer SELFPAY ==
[~2021-05-13] VITALS: Ht 157.5 cm; Wt 63.4 kg
[~2021-05-13 14:59] MED LIST changes: +QUET1TAB17 PO; -QUET25TA3 PO
[2021-05-13] MEDS ORDERED: CLON0.5T2 PO (15:04)
--- OUTSIDE RECORDS SUMMARY | 2021-05-13 15:05 | CCD ---
Author Author [facility] Organization [facility] Address Unknown Phone Unavailable Care Team Providers Care Director Investor Relations Name Role Phone Méndez, M Marija PA-C Unavailable Unavailable Méndez, M Marija PA-C Unavailable Unavailable Méndez, M Marija PA-C Unavailable Unavailable Méndez, M Marija PA-C Unavailable Unavailable Méndez, M Marija PA-C Unavailable Unavailable Méndez, M Marija PA-C Unavailable Unavailable Méndez, M Marija PA-C Unavailable Unavailable Méndez, M Marija PA-C Unavailable Unavailable Méndez, M Marija PA-C Unavailable Unavailable Méndez, M Marija PA-C Unavailable Unavailable Méndez, M Marija PA-C Unavailable Unavailable Méndez, M Marija PA-C Unavailable Unavailable Méndez, M Marija PA-C Unavailable Unavailable Méndez, M Marija PA-C Unavailable Unavailable Méndez, M Marija PA-C Unavailable Unavailable Méndez, M Marija PA-C Unavailable Unavailable Méndez, M Marija PA-C Unavailable Unavailable Méndez, M Marija PA-C Unavailable Unavailable Méndez, M Marija PA-C Unavailable Unavailable Méndez, M Marija PA-C Unavailable Unavailable Méndez, M Marija PA-C Unavailable Unavailable Méndez, M Marija PA-C Unavailable Unavailable Méndez, M Marija PA-C Unavailable Unavailable Méndez, M Marija PA-C Unavailable Unavailable Méndez, M Marija PA-C Unavailable Unavailable Méndez, M Marija PA-C Unavailable Unavailable Méndez, M Marija PA-C Unavailable Unavailable Méndez, M Marija PA-C Unavailable Unavailable Méndez, M Marija PA-C Unavailable Unavailable Méndez, M Marija PA-C Unavailable Unavailable Méndez, M Marija PA-C Unavailable Unavailable Méndez, M Marija PA-C Unavailable Unavailable Méndez, M Marija PA-C Unavailable Unavailable Méndez, M Marija PA-C Unavailable Unavailable Méndez, M Marija PA-C Unavailable Unavailable Méndez, M Marija PA-C Unavailable Unavailable Méndez, M Marija PA-C Unavailable Unavailable Méndez, M Marija PA-C Unavailable Unavailable EDWARDS, J MIKE PA Unavailable Unavailable EDWARDS, J MIKE PA Unavailable Unavailable EDWARDS, J MIKE PA Unavailable Unavailable EDWARDS, J MIKE PA Unavailable Unavailable EDWARDS, J MIKE PA Unavailable Unavailable EDWARDS, J MIKE PA Unavailable Unavailable EDWARDS, J MIKE PA Unavailable Unavailable EDWARDS, J MIKE PA Unavailable Unavailable EDWARDS, J MIKE PA Unavailable Unavailable EDWARDS, J MIKE PA Unavailable Unavailable EDWARDS, J MIKE PA Unavailable Unavailable EDWARDS, J MIKE PA Unavailable Unavailable EDWARDS, J MIKE PA Unavailable Unavailable EDWARDS, J MIKE PA Unavailable Unavailable EDWARDS, J MIKE PA Unavailable Unavailable EDWARDS, J MIKE PA Unavailable Unavailable EDWARDS, J MIKE PA Unavailable Unavailable EDWARDS, J MIKE PA Unavailable Unavailable EDWARDS, J MIKE PA Unavailable Unavailable EDWARDS, J MIKE PA Unavailable Unavailable EDWARDS, J MIKE PA Unavailable Unavailable EDWARDS, J MIKE PA Unavailable Unavailable EDWARDS, J MIKE PA Unavailable Unavailable EDWARDS, J MIKE PA Unavailable Unavailable EDWARDS, J MIKE PA Unavailable Unavailable EDWARDS, J MIKE PA Unavailable Unavailable EDWARDS, J MIKE PA Unavailable Unavailable WilSanjuanita rodriguez MEDICAL BILLING ASSISTANT Unavailable Unavailable EDWARDS, J MIKE PA Unavailable Unavailable EDWARDS, J MIKE PA Unavailable Unavailable EDWARDS, J MIKE PA Unavailable Unavailable EDWARDS, J MIKE PA Unavailable Unavailable EDWARDS, J MIKE PA Unavailable Unavailable EDWARDS, J MIKE PA Unavailable Unavailable EDWARDS, J MIKE PA Unavailable Unavailable EDWARDS, J MIKE PA Unavailable Unavailable EDWARDS, J MIKE PA Unavailable Unavailable EDWARDS, J MIKE PA Unavailable Unavailable EDWARDS, J MIKE PA Unavailable Unavailable EDWARDS, J MIKE PA Unavailable Unavailable EDWARDS, J MIKE PA Unavailable Unavailable EDWARDS, J MIKE PA Unavailable Unavailable EDWARDS, J MIKE PA Unavailable Unavailable EDWARDS, J MIKE PA Unavailable Unavailable EDWARDS, J MIKE PA Unavailable Unavailable EDWARDS, J MIKE PA Unavailable Unavailable EDWARDS, J MIKE PA Unavailable Unavailable EDWARDS, J MIKE PA Unavailable Unavailable EDWARDS, J MIKE PA Unavailable Unavailable EDWARDS, J MIKE PA Unavailable Unavailable EDWARDS, J MIKE PA Unavailable Unavailable EDWARDS, J MIKE PA Unavailable Unavailable EDWARDS, J MIKE PA Unavailable Unavailable EDWARDS, J MIKE PA Unavailable Unavailable EDWARDS, J MIKE PA Unavailable Unavailable Fausto Wolf MD Unavailable Unavailable Fausto Wolf MD Unavailable Unavailable Fausto Wolf MD Unavailable Unavailable Fausto Wolf MD Unavailable Unavailable Fausto Wolf MD Unavailable Unavailable Fausto Wolf MD Unavailable Unavailable Fausto Wolf MD Unavailable Unavailable Fausto Wolf MD Unavailable Unavailable Fausto Wolf MD Unavailable Unavailable Fausto Wolf MD Unavailable Unavailable Fausto Wolf MD Unavailable Unavailable Fausto Wolf MD Unavailable Unavailable Fausto Wolf MD Unavailable Unavailable Fausto Wolf MD Unavailable Unavailable Fausto Wolf MD Unavailable Unavailable Fausto Wolf MD Unavailable Unavailable Fausto Wolf MD Unavailable Unavailable Fausto Wolf MD Unavailable Unavailable Fausto Wolf MD Unavailable Unavailable Fausto Wolf MD Unavailable Unavailable Fausto Wolf MD Unavailable Unavailable Fausto Wolf MD Unavailable Unavailable Fausto Wolf MD Unavailable Unavailable Fausto Wolf MD Unavailable Unavailable Fausto Wolf MD Unavailable Unavailable Fausto Wolf MD Unavailable Unavailable Re-disclosure Warning The records that you are about to access may contain information from federally-assisted alcohol or drug abuse programs. If such information is present, then the following federally mandated warning applies: This information has been disclosed to you from records protected by federal confidentiality rules (42 CFR part 2). The federal rules prohibit you from making any further disclosure of this information unless further disclosure is expressly permitted by the written consent of the person to whom it pertains or as otherwise permitted by 42 CFR part 2. A general authorization for the release of medical or other information is NOT sufficient for this purpose. The Federal rules restrict any use of the information to criminally investigate or prosecute any alcohol or drug abuse patient.The records that you are about to access may contain highly sensitive health information, the redisclosure of which is protected by Article 27-F of the [facility] Public Health law. If you continue you may have access to information: Regarding HIV / AIDS; Provided by facilities licensed or operated by the [facility] Office of Mental Health; or Provided by the [facility] Office for People With Developmental Disabilities. If such information is present, then the following [facility] mandated warning applies: This information has been disclosed to you from confidential records which are protected by state law. State law prohibits you from making any further disclosure of this information without the specific written consent of the person to whom it pertains, or as otherwise permitted by law. Any unauthorized further disclosure in violation of state law may result in a fine or long term sentence or both. A general authorization for the release of medical or other information is NOT sufficient authorization for further disc losure. Encounters Encounter Providers Location Date Indications Data Source(s ) Outpatient Attender: MIKE GAMEZ 12/30 04:23:00 PM EDT - 12/30/2020 04:23:00 PM EDT [facility] Outpatient Attender: MIKE GAMEZ [facility] 12/30 04:20:00 PM EDT [facility] Outpatient Attender: MIKE GAMEZ [facility] 10/03 04:40:00 PM EDT [facility] Out[facility] Attender: MIKE GAMEZ 10/03 04:16:00 PM EDT - 10/03/2020 04:16:00 PM EDT [facility] Outpatient Attender: MIKE GAMEZ 07/31 10:31:00 AM EST - 07/31/2020 10:31:00 AM [facility] Outpatient Attender: MIKE GAMEZ [facility] 07/31 09:20:00 AM EST [facility] Outpatient Attender: MIKE GAMEZ 06/19 09:41:00 AM EST - 06/19/2020 09:41:00 AM EST [facility] Outpatient Attender: MIKE GAMEZ [facility] 06/19 08:40:00 AM EST [facility] ([facility] Outpatient Attender: Marija Méndez PA-C 02/2020 10:49:00 AM EST - 06/10/2020 10:49:00 AM EST [facility] Outpatient Attender: MIKE GAMEZ 05/21 11:11:00 AM EST - 05/21/2020 11:11:00 AM EST [facility] Outpatient Attender: MIKE GAMEZ [facility] 05/21 10:20:00 AM EST [facility] ([facility] Outpatient Attender: MIKE GAMEZ [facility] 04/23 09:20:00 AM EDT [facility] ([facility] Outpatient Attender: MIKE EDWARDS PAReferrer: Floyd belle MD 04/23/2020 09:14:00 AM EDT - 04/23/2020 09:14:00 AM EDT [facility] Outpatient Attender: MIKE EDWARDS PAReferrer: Floyd belle MD 03/25/2020 09:45:00 AM EDT - 03/25/2020 09:45:00 AM EDT [facility] Outpatient Attender: MIKE EDWARDS PAReferrer: Floyd belle MD 02/22/2020 09:40:00 AM EDT - 02/22/2020 09:40:00 AM EDT [facility] Outpatient Attender: Rosario Waldron LMSWReferrer: Floyd benjamin MD 02/19/2020 08:52:00 AM EDT - 02/19/2020 08:52:00 AM EDT [facility] Immunizations Vaccine Date Status Description Data Source(s) COVID-19 VACCINE Pfizer 01/31/2021 12:00:00 AM EDT completed [facility] Vaccine Series Complete: YESThis Data wa s Submitted to [facility] [employer]. COVID-19 VACCINE Pfizer 01/10/2021 12:00:00 AM EDT completed [facility] Vaccine Series Complete: NOThis Data was Submitted to [facility] [employer]. Medications Medication Brand Name Start Date Product Form Dose Route Admi nistrative Instructions Pharmacy Instructions Status Indications Reaction Description Data Source(s) Fluoxetine 20 MG Oral Capsule Fluoxetine HCL 06/19/2020 12:00:[address] ORAL active [facility] ([facility]) Citalopram 20 MG Oral Tablet [Celexa] Celexa 05/21/2020 12:00:00 AM EST completed [facility] ([facility]) Escitalopram 10 MG Oral Tablet [Lexapro] Lexapro 05/21/2020 12:00: 00 AM EST ORAL completed [facility] ([facility]) 12 HR Bupropion Hydrochloride 100 MG Extended Release Oral Tablet Bupropion Hydrochloride ER (SR) 02/07/2020 12:00:00 AM EDT c ompleted [facility] ([facility]) Insurance Providers Payer name Policy type / Coverage type Policy ID Covered democrat ID Covered democrat's relationship to andres Policy Andres Plan Information Health system P [id number] S [id number] Health system P [id number] S [id number] Health system P [id number] S [id number] Health system P [id number] S [id number] Health system P [id number] S [id number] Health system P [id number] S [id number] Health system P [id number] S [id number] SELF PAY ONLY [id number] SP [id number] 421 [place] [id number] SP [id number] O [id number] S [id number] Self Pay P [id number] S [id number] Problems, Conditions, and Diagnoses Code Display Name Description Problem Type Effective Dates Data Source(s) F603 Borderline personality disorder Borderline personality disorder Diagnosis 06/19/2020 09:41:00 AM EST [facility] F419 Anxiety disorder, unspecified Anxiety disorder, unspec ified Diagnosis 06/19/2020 09:41:00 AM [facility] F339 Major depressive disorder, recurrent, un specified Major depressive disorder, recurrent, unspecified Diagnosis 06/19/2020 09:41:00 AM [facility] Surgeries/Procedures Procedure Description Date Indications Data Source(s) OFFICE OUTPATIENT VISIT 25 MINUTES 12/30/2020 12:00:00 AM EDT [facility] ([facility]) OFFICE OUTPATIENT VISIT 25 MINUTES 10/03/2020 12:00:00 AM EDT [facility] ([facility]) OFFICE OUTPATIENT VISIT 25 MINUTES 07/31/2020 12:00:00 AM EST [facility] ([facility]) Psychiatric Diag Eval W/Medical Service 03/25/2020 12: 00:00 AM EDT [facility]) Results ID Date Data Source [id number] 07/24/2020 12:00:00 AM EST [facility] Name Value Range Interpretation Code Description Data Rosalinda rce(s) Supporting Document(s) SARS-CoV-2 (COVID-19) RNA [Presence] in Respiratory specimen by ALBA with probe detection Not Detected [facility] This lab was ordered by [facility] and reported by [employer] ID Date Data Source [id number] 07/12/2020 12:00:00 AM EST [facility] Name Value Range Interpretation Code Description Data Rosalinda rce(s) Supporting Document(s) SARS-CoV-2 (COVID-19) RNA [Presence] in Respiratory specimen by ALBA with probe detection Not Detected [facility] This lab was ordered by [facility] and reported by [employer] Procedure Social History No Information Vital Signs ID Date Data Source UNK Name Value Range Interpretation Code Description Data Source(s) Systolic blood pressure 108 mm[Hg] 108 mm[Hg] [facility]) Diastolic blood pressure 70 mm[Hg] 70 mm[Hg] [facility] ([facility]) Heart rate 95 /min 95 /min [facility] ([facility]) Oxygen saturation in Arterial blood by Pulse oximetry 99 % 99 % [facility] ([facility]) Body weight 174.25 [lb_av] 174.25 [lb_av] [facility] ([facility]) Body weight 79.040 kg 79.040 kg [facility] ([facility]) Body height 62 [in_i] 62 [in_i] [facility] ([facility]) 5'2" Body mass index (BMI) [Ratio] 31.9 kg/m2 31.9 k g/m2 [facility] ([facility]) Body surface area Derived from formula 1.80 m2 1.80 m2 [facility] ([facility]) Body temperature 96.6 [degF] 96.6 [degF] [facility] ([facility]) Respiratory rate 16 /min 16 /min [facility] ( [facility])
[2021-05-13 16:08] LABS: HEMATOCRIT 43.3 % (36.0-47.0); HEMOGLOBIN 14.6 g/dl (12.0-15.5); MEAN CORPUSCULAR HEMOGLOBIN 30.5 pg (27.0-33.0); MEAN CORPUSCULAR HGB CONC 33.7 g/dl (32.0-36.5); MEAN CORPUSCULAR VOLUME 90.6 fl (80.0-96.0); PLATELET COUNT, AUTOMATED 285 10^3/uL (150-450); RED BLOOD COUNT 4.78 10^6/uL (4.00-5.40); WHITE BLOOD COUNT 10.2 10^3/uL (4.0-10.0)
[2021-05-13 16:29] LABS: AMPHETAMINES LEVEL URINE NEGATIVE (NEGATIVE); BARBITURATES URINE NEGATIVE (NEGATIVE); BENZODIAZEPINES URINE NEGATIVE (NEGATIVE); CANNABINOIDS URINE POSITIVE (NEGATIVE); COCAINE METABOLITE URINE NEGATIVE (NEGATIVE); METHADONE URINE NEGATIVE (NEGATIVE); OPIATES URINE NEGATIVE (NEGATIVE); PHENCYCLIDINE URINE NEGATIVE (NEGATIVE)
[2021-05-13 16:42] LABS: HCG, SERUM QUALITATIVE NEGATIVE (NEGATIVE)
[2021-05-13 16:59] LABS: ACETAMINOPHEN LEVEL < 2.0 UG/ML (10.0-30.0); ALBUMIN 4.3 GM/DL (3.2-5.2); ALT/SGPT 15 U/L (12-78); BILIRUBIN,DIRECT 0.3 MG/DL (0.0-0.2); BILIRUBIN,TOTAL 1.4 MG/DL (0.2-1.0); BLOOD UREA NITROGEN 14 MG/DL (7-18); CALCIUM LEVEL 9.7 MG/DL (8.5-10.1); CARBON DIOXIDE LEVEL 27 MEQ/L (21-32); CHLORIDE LEVEL 104 MEQ/L (98-107); CREATININE FOR GFR 0.79 MG/DL (0.55-1.30); ETHYL ALCOHOL (ETHANOL) < 0.003 % (0.000-0.010); GLOMERULAR FILTRATION RATE > 60.0 (>60); GLUCOSE, FASTING 99 MG/DL (70-100); SALICYLATE LEVEL < 1.7 MG/DL (5.0-30.0); SODIUM LEVEL 139 MEQ/L (136-145); THYROID STIMULATING HORMONE 0.865 uIU/ML (0.358-3.740); TOTAL PROTEIN 7.7 GM/DL (6.4-8.2)
--- OUTSIDE RECORDS SUMMARY | 2021-05-13 17:06 | CCD ---
Author Author [facility] Organization [facility] Address Unknown Phone Unavailable Care Team Providers Care Sterile Instrument Technician Name Role Phone Méndez, M Marija PA-C [...] J MIKE PA Unavailable Unavailable WilSanjuanita rodriguez GROUP ART SUPERVISOR Unavailable Unavailable EDWARDS, J MIKE PA Unavailable [...] Unavailable EDWARDS, J MIKE PA Unavailable Unavailable Fasuto Wolf MD Unavailable Unavailable Fausto Wolf MD [...] is protected by Article 27-F of the [facility] Public Health law. If you continue you may have access to information: Regarding HIV / AIDS; Provided by facilities licensed or operated by the [facility] Office of Mental Health; or Provided by the [facility] Office for People With Developmental Disabilities. If such information is present, then the following [facility] mandated warning applies: This information has been [...] law may result in a fine or fpc sentence or both. A general authorization for the release of medical or other information is NOT sufficient authorization for further disc losure. Encounters Encounter Providers Location Date Indications Data Source(s ) Outpatient Attender: MIKE GAMEZ 12/30 04:23:00 PM EDT - 12/30/2020 04:23:00 PM EDT [facility] Outpatient Attender: MIKE GAMEZ [facility] 12/30 04:20:00 PM EDT [facility] Outpatient Attender: MIKE GAMEZ [facility] 10/03 04:40:00 PM EDT [facility] Attender: MIKE GAMEZ 10/03 04:16:00 PM EDT - 10/03/2020 04:16:00 PM EDT [facility] Outpatient Attender: MIKE GAMEZ 07/31 10:31:00 AM EST - 07/31/2020 10:31:00 AM [facility] Outpatient Attender: MIKE GAMEZ [facility] 07/31 09:20:00 AM EST [facility] Outpatient Attender: MIKE GAMEZ 06/19 09:41:00 AM EST - 06/19/2020 09:41:00 AM EST [facility] Outpatient Attender: MIKE GAMEZ [facility] 06/19 08:40:00 AM EST [facility] Outpatient Attender: Marija Méndez PA-C 02/2020 10:49:00 AM EST - 06/10/2020 10:49:00 AM EST [facility] Outpatient Attender: MIKE GAMEZ 05/21 11:11:00 AM EST - 05/21/2020 11:11:00 AM EST [facility] Outpatient Attender: MIKE GAMEZ [facility] 05/21 10:20:00 AM EST [facility] ([facility] Outpatient Attender: MIKE GAMEZ [facility] 04/23 09:20:00 AM EDT [facility] ([facility] Outpatient Attender: MIKE EDWARDS PAReferrer: Floyd belle MD 04/23/2020 09:14:00 AM EDT - 04/23/2020 09:14:00 AM EDT [facility] Outpatient Attender: MIKE EDWARDS PAReferrer: Floyd belle MD 03/25/2020 09:45:00 AM EDT - 03/25/2020 09:45:00 AM EDT [facility] Outpatient Attender: MIKE EDWARDS PAReferrer: Floyd belle MD 02/22/2020 09:40:00 AM EDT - 02/22/2020 09:40:00 AM EDT [facility] Outpatient Attender: Rosario Waldron LMSWReferrer: Floyd benjamin MD 02/19/2020 08:52:00 AM EDT - 02/19/2020 08:52:00 AM EDT [facility] Immunizations Vaccine Date Status Description Data Source(s) COVID-19 VACCINE Pfizer 01/31/2021 12:00:00 AM EDT completed [facility] Vaccine Series Complete: YESThis Data wa s Submitted to [facility] [employer]. COVID-19 VACCINE Pfizer 01/10/2021 12:00:00 AM EDT completed [facility] Vaccine Series Complete: NOThis Data was Submitted to [facility] [employer]. Medications Medication Brand Name Start Date Product Form Dose Route Admi nistrative Instructions Pharmacy Instructions Status Indications Reaction Description Data Source(s) Fluoxetine 20 MG Oral Capsule Fluoxetine HCL 06/19/2020 12:00:[address] ORAL active [facility] ([facility]) Citalopram 20 MG Oral Tablet [Celexa] Celexa 05/21/2020 12:00:00 AM EST completed [facility] ([facility]) Escitalopram 10 MG Oral Tablet [Lexapro] Lexapro 05/21/2020 12:00: 00 AM EST ORAL completed [facility] ([facility]) 12 HR Bupropion Hydrochloride 100 MG Extended Release Oral Tablet Bupropion Hydrochloride ER (SR) 02/07/2020 12:00:00 AM EDT c ompleted [facility] ([facility]) Insurance Providers Payer name Policy type / Coverage type Policy ID Covered republican ID Covered republican's relationship to andres Policy Andres Plan Information [facility] P [id number] S [id number] [facility] P [id number] S [id number] [facility] P [id number] S [id number] [facility] P [id number] S [id number] [facility] P [id number] S [id number] [facility] P [id number] S [id number] [facility] P [id number] S [id number] SELF PAY ONLY [id number] SP [id number] 421 [place] [id number] SP [id number] [facility] O [id number] S [id number] Self Pay P [id number] S [id number] Problems, Conditions, and Diagnoses Code Display Name Description Problem Type Effective Dates Data Source(s) F603 Borderline personality disorder Borderline personality disorder Diagnosis 06/19/2020 09:41:00 AM EST [facility] F419 Anxiety disorder, unspecified Anxiety disorder, unspec ified Diagnosis 06/19/2020 09:41:00 AM [facility] F339 Major depressive disorder, recurrent, un specified Major depressive disorder, recurrent, unspecified Diagnosis 06/19/2020 09:41:00 AM [facility] Surgeries/Procedures Procedure Description Date Indications Data Source(s) OFFICE OUTPATIENT VISIT 25 MINUTES 12/30/2020 12:00:00 AM EDT [facility] ([facility]) OFFICE OUTPATIENT VISIT 25 MINUTES 10/03/2020 12:00:00 AM EDT [facility] ([facility]) OFFICE OUTPATIENT VISIT 25 MINUTES 07/31/2020 12:00:00 AM EST [facility] ([facility]) Psychiatric Diag Eval W/Medical Service 03/25/2020 12: 00:00 AM EDT [facility] ([facility] Results ID Date Data Source [id number] 07/24/2020 12:00:00 AM EST [facility] Name Value Range Interpretation Code Description Data Rosalinda rce(s) Supporting Document(s) SARS-CoV-2 (COVID-19) RNA [Presence] in Respiratory specimen by ALBA with probe detection Not Detected [facility] This lab was ordered by [facility] and reported by [employer] ID Date Data Source [id number] 07/12/2020 12:00:00 AM EST [facility] Name Value Range Interpretation Code Description Data Rosalinda rce(s) Supporting Document(s) SARS-CoV-2 (COVID-19) RNA [Presence] in Respiratory specimen by ALBA with probe detection Not Detected [facility] This lab was ordered by [facility] and reported by [employer] Procedure Social History No Information Vital Signs ID Date Data Source UNK Name Value Range Interpretation Code Description Data Source(s) Systolic blood pressure 108 mm[Hg] 108 mm[Hg] [facility] Diastolic blood pressure 70 mm[Hg] 70 mm[Hg] [facility] ([facility]) Heart rate 95 /min 95 /min [facility] ([facility]) Oxygen saturation in Arterial blood by Pulse oximetry 99 % 99 % [facility] ([facility]) Body weight 174.25 [lb_av] 174.25 [lb_av] [facility] T ([facility]) Body weight 79.040 kg 79.040 kg [facility] ([facility]) Body height 62 [in_i] 62 [in_i] [facility] ([facility]) 5'2" Body mass index (BMI) [Ratio] 31.9 kg/m2 31.9 k g/m2 [facility] ([facility]) Body surface area Derived from formula 1.80 m2 1.80 m2 [facility] ([facility]) Body temperature 96.6 [degF] 96.6 [degF] [facility] ([facility]) Respiratory rate 16 /min 16 /min [facility] ( [facility])
[2021-05-13] MEDS ORDERED: FLUO10CA16 PO (21:13)
[2021-05-13] MEDS ORDERED: MELA5TAB10 PO (21:13)
[2021-05-13] MEDS ORDERED: BUPR150T12 PO (21:13)
[2021-05-13] MEDS ORDERED: HOME MED LIST COMPLETE! XX SCH (21:15)
[2021-05-13] MEDS ORDERED: ONDANSETRON 4 MG ORAL DISINTEGRATING TAB PO ONE (22:10)
[2021-05-13] MEDS ORDERED: clonazePAM 0.5 MG TAB PO ONE (22:15)
[2021-05-13 23:22] LABS: RSV AMPLIFICATION NEGATIVE (NEGATIVE)
[2021-05-14] MEDS ORDERED: MAALOX 30 ML SUSP *UDC PO PRN (00:10)
[2021-05-14] MEDS ORDERED: hydrOXYzine 10 MG TAB PO PRN (00:10)
[2021-05-14] MEDS ORDERED: ACETAMINOPHEN TAB 650MG DOSE (2X325MG) PO PRN (00:10)
[2021-05-14] MEDS ORDERED: MOM 30ML SUSPENSION UDC PO PRN (00:10)
[2021-05-14] MEDS ORDERED: traZODone 50 MG TAB PO PRN (00:10)
--- OUTSIDE RECORDS SUMMARY | 2021-05-14 00:32 | CCD ---
Author Author [facility] Organization [facility] Address Unknown Phone Unavailable Care Team Providers Care Continuous Improvement Facilitator Name Role Phone Méndez, M Marija PA-C [...] Unavailable Méndez, M Marija PA-C Unavailable Unavailable Ménedz, M Marija PA-C Unavailable Unavailable Méndez, M [...] Unavailable Méndez, M Marija PA-C Unavailable Unavailable Ménedz, M Marija PA-C Unavailable Unavailable EDWARDS, J [...] J MIKE PA Unavailable Unavailable WilSanjuanita rodriguez CHIEF LOAD DISPATCHER Unavailable Unavailable EDWARDS, J MIKE PA Unavailable Unavailable EDWARDS, J MIKE PA Unavailable Unavailable EDWARDS, J MIKE PA Unavailable Unavailable EDWARDS, J MIKE PA Unavailable Unavailable EDWARDS, J MIKE PA Unavailable Unavailable EDWARDS, J MIKE PA Unavailable Unavailable EDWARDS, J MIKE PA Unavailable Unavailable EDWARDS, J MIKE PA Unavailable Unavailable EDWARDS, J MIKE PA Unavailable Unavailable EDWARDS, J IMKE PA Unavailable Unavailable EDWARDS, J MIKE PA [...] is protected by Article 27-F of the [facility] Public Health law. If you continue you may have access to information: Regarding HIV / AIDS; Provided by facilities licensed or operated by the [facility] Office of Mental Health; or Provided by the [facility] Office for People With Developmental Disabilities. If such information is present, then the following [facility] mandated warning applies: This information has [...] law may result in a fine or halfway sentence or both. A general authorization for the release of medical or other information is NOT sufficient authorization for further disc losure. Encounters Encounter Providers Location Date Indications Data Source(s ) Outpatient Attender: MIKE GAMEZ 12/30 04:23:00 PM EDT - 12/30/2020 04:23:00 PM EDT [facility] Outpatient Attender: MIKE GAMEZ [facility] 12/30 04:20:00 PM EDT [facility] Outpatient Attender: MIKE GAMEZ [facility] 10/03 04:40:00 PM EDT [facility] Outpatient Attender: MIKE GAMEZ 10/03 04:16:00 PM EDT - 10/03/2020 04:16:00 PM EDT [facility] Outpatient Attender: MIKE GAMEZ 07/31 10:31:00 AM EST - 07/31/2020 10:31:00 AM [facility] Outpatient Attender: MIKE GAMEZ [facility] 07/31 09:20:00 AM EST [facility] Outpatient Attender: MIKE GAMEZ 06/19 09:41:00 AM EST - 06/19/2020 09:41:00 AM EST [facility] Outpatient Attender: MIKE GAMEZ [facility] 06/19 08:40:00 AM EST [facility] ([facility] Outpatient Attender: Marija Méndez PA-C 02/2020 10:49:00 AM EST - 06/10/2020 10:49:00 AM EST [facility] Outpatient Attender: MIKE GAMEZ 05/21 11:11:00 AM EST - 05/21/2020 11:11:00 AM EST [facility] Outpatient Attender: MIKE GAMEZ [facility] 05/21 10:20:00 AM EST [facility] ([facility] Outpatient Attender: MIKE GAMEZ [facility] 04/23 09:20:00 AM EDT [facility] ([facility] Outpatient Attender: MIKE EDWARDS PAReferrer: Floyd belle MD 04/23/2020 09:14:00 AM EDT - 04/23/2020 09:14:00 AM EDT [facility] Outpatient Attender: MIKE EDWARDS PAReferrer: Floyd belle MD 03/25/2020 09:45:00 AM EDT - 03/25/2020 09:45:00 AM EDT [facility] Outpatient Attender: MIKE EDWARDS PAReferrer: Floyd belle MD 02/22/2020 09:40:00 AM EDT - 02/22/2020 09:40:00 AM EDT [facility] Outpatient Attender: Rosario Waldron LMSWReferrer: Floyd benjamin MD 02/19/2020 08:52:00 AM EDT - 02/19/2020 08:52:00 AM EDT [facility] Immunizations Vaccine Date Status Description Data Source(s) COVID-19 VACCINE Pfizer 01/31/2021 12:00:00 AM EDT [facility] YESThis Data wa s [facility] to [facility] [place]. COVID-19 VACCINE Pfizer 01/10/2021 12:00:00 AM EDT completed [facility] Vaccine Series Complete: NOThis Data was Submitted to [facility] [place]. Medications Medication Brand Name Start Date Product Form Dose Route Admi nistrative Instructions Pharmacy Instructions Status Indications Reaction Description Data Source(s) Fluoxetine 20 MG Oral Capsule Fluoxetine HCL 06/19/2020 12:00:[address] ORAL active [facility]) Citalopram 20 MG Oral Tablet [Celexa] Celexa 05/21/2020 12:00:00 AM EST completed [facility] ([facility]) Escitalopram 10 MG Oral Tablet [Lexapro] Lexapro 05/21/2020 12:00: 00 AM EST ORAL completed [facility] ([facility]) 12 HR Bupropion Hydrochloride 100 MG Extended Release Oral Tablet Bupropion Hydrochloride ER (SR) 02/07/2020 12:00:00 AM EDT c ompleted [facility] ([facility]) Insurance Providers Payer name Policy type / Coverage type Policy ID Covered republican ID Covered republican's relationship to andres Policy Andres Plan Information [facility] P [id number] S [id number] [facility] P [id number] S [id number] [facility] P [id number] S [id number] [facility] P [id number] S [id number] [facility] P [id number] S [id number] [facility] P [id number] S [id number] [facility] P [id number] S [id number] SELF PAY ONLY [id number] SP [id number] [place] [id number] SP [id number] [id number] S [id number] Self Pay P [id number] S [id number] Problems, Conditions, and Diagnoses Code Display Name Description Problem Type Effective Dates Data Source(s) F603 Borderline personality disorder Borderline personality disorder Diagnosis 06/19/2020 09:41:00 AM EST [facility] F419 Anxiety disorder, unspecified Anxiety disorder, unspec ified Diagnosis 06/19/2020 09:41:00 AM [facility] F339 Major depressive disorder, recurrent, un specified Major depressive disorder, recurrent, unspecified Diagnosis 06/19/2020 09:41:00 AM [facility] Surgeries/Procedures Procedure Description Date Indications Data Source(s) OFFICE OUTPATIENT VISIT 25 MINUTES 12/30/2020 12:00:00 AM EDT [facility] ([facility]) OFFICE OUTPATIENT VISIT 25 MINUTES 10/03/2020 12:00:00 AM EDT [facility] ([facility]) OFFICE OUTPATIENT VISIT 25 MINUTES 07/31/2020 12:00:00 AM EST [facility] ([facility]) Psychiatric Diag Eval W/Medical Service 03/25/2020 12: 00:00 AM EDT [facility] ([facility]) Results ID Date Data Source [id number] 07/24/2020 12:00:00 AM EST [facility] Name Value Range Interpretation Code Description Data Rosalinda rce(s) Supporting Document(s) SARS-CoV-2 (COVID-19) RNA [Presence] in Respiratory specimen by ALBA with probe detection Not Detected [facility] This lab was ordered by [facility] and reported by [employer] ID Date Data Source [id number] 07/12/2020 12:00:00 AM EST [facility] Name Value Range Interpretation Code Description Data Rosalinda rce(s) Supporting Document(s) SARS-CoV-2 (COVID-19) RNA [Presence] in Respiratory specimen by ALBA with probe detection Not Detected [facility] This lab was ordered by [facility] and reported by [employer] Procedure Social History No Information Vital Signs ID Date Data Source UNK Name Value Range Interpretation Code Description Data Source(s) Heart rate 95 /min 95 /min [facility] Systolic blood pressure 108 mm[Hg] 108 mm[Hg] M [facility] ([facility]) Oxygen saturation in Arterial blood by Pulse oximetry 99 % 99 % [facility] ([facility]) Body weight 174.25 [lb_av] 174.25 [lb_av] [facility] T ([facility]) Body weight 79.040 kg 79.040 kg [facility] ([facility]) Body height 62 [in_i] 62 [in_i] [facility] ([facility]) 5'2" Body mass index (BMI) [Ratio] 31.9 kg/m2 31.9 k g/m2 [facility] ([facility]) Body surface area Derived from formula 1.80 m2 1.80 m2 [facility] ([facility]) Diastolic blood pressure 70 mm[Hg] 70 mm[Hg] [facility]) Body temperature 96.6 [degF] 96.6 [degF] [facility] ([facility]) Respiratory rate 16 /min 16 /min [facility] ( [facility])
[2021-05-14 03:37] VITALS: BP 100/68
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
[2021-05-14 08:02] VITALS: BP 112/76
[2021-05-14] MEDS: buPROPion **XL** TABLET 150MG (WELLBUTRIN XL) PO SCH (08:04)
[2021-05-14] MEDS: DULoxetine 20 MG CAP (CYMBALTA) PO SCH ×2 (08:04→21:31)
[2021-05-14] MEDS: PROPRANOLOL 10 MG TAB PO SCH ×3 (08:04→21:00)
[2021-05-14] MEDS ORDERED: FLUoxetine 10 MG CAP PO SCH (09:00)
[2021-05-14] MEDS: clonazePAM 0.5 MG TAB PO PRN (13:22)
[2021-05-14 18:44] VITALS: BP 100/61
[2021-05-14 21:00] VITALS: BP 105/65
[2021-05-14] MEDS: RAMELTEON 8 MG TAB (ROZEREM) PO SCH (21:31)
[2021-05-15 06:26] VITALS: BP 99/65
[2021-05-15] MEDS ORDERED: INFLUENZA QUADRIVALENT PF VACCINE 0.5ML SYRINGE IM ONE (09:00)
[2021-05-15] MEDS: buPROPion **XL** TABLET 150MG (WELLBUTRIN XL) PO SCH (09:56)
--- NOTE | 2021-05-15 10:59 | HPEPDOC ---
General Date of Admission May 14, 2021 at 00:06 Chief Complaint The patient is a 25-year-old female admitted with a reason for visit of Unspeci fied Depressive Disorder. Source: Patient History of Present Illness 25 year old female admitted to [facility] for increased anxiety, depression with suicidal thoughts. She is being examined here for medical history and physical. She did not offer any complaints today. Home Medications Scheduled Bupropion Hcl (Bupropion Xl) 150 Mg Tab.er.24h, 150 MG PO DAILY, (Reported) Fluoxetine Hcl (Fluoxetine HCl) 10 Mg Capsule, 10 MG PO DAILY, (Reported) Melatonin (Melatonin) 5 Mg Tablet, 5 MG PO QHS, (Reported) Scheduled PRN Clonazepam (Clonazepam) 0.5 Mg Tablet, 0.5 MG PO DAILY PRN for anxiety, (Repo rted) Allergies Coded Allergies: Penicillins (Verified Allergy, Unknown, 10/07/18) amoxicillin (Verified Allergy, Unknown, 10/07/18) Past Medical History Medical History Fibromyalgia, DYLAN, MDD, borderline personality disorder. Surgical History none Family History Significant Family History: Hypertension (mother), Other (Psychiatric problems on mother's side) Social History * Smoker: Denies Alcohol: Denies Drugs: marijuana A-FIB/CHADSVASC A-FIB History Current/History of A-Fib/PAF?: No Age/Risk Factor Scoring CHADSVASC: CHADSVASC Response (Comments) Value Age Risk Factor Age < 65 years old 0 Gender Risk Factor Female 1 Hx of CHF No 0 Hx of HTN No 0 Hx of Stroke/TIA/or VTE No 0 Hx of Diabetes No 0 Hx of Vascular Disease No 0 Total 1 Review of Systems Constitutional: Denies: Chills, Fever, Night Sweats Eyes: Denies: Pain, Vision change ENT: Denies: Head Aches, Ear Pain, Dysphagia Skin: Denies: Rash, Lesions, Breakdown Pulmonary: Denies: Dyspnea, Cough Cardiovascular: Denies: Chest Pain, Palpitations, Orthopnea, Paroxysmal Noc. Dyspnea, Lt Headedness Gastrointestinal: Denies: Nausea, Vomiting, Abdominal Pain, Diarrhea Hematologic: Denies: Bruising, Bleeding Excessively Physical Examination General Exam: Positive: Alert, Cooperative, No Acute Distress Eye Exam: Positive: PERRLA, Conjunctiva & lids normal, EOMI; Negative: Sclera icteric ENT Exam: Positive: Atraumatic, Mucous membr. moist/pink, Pharynx Normal Neck Exam: Positive: Supple; Negative: JVD, thyromegaly Chest Exam: Positive: Clear to auscultation, Normal air movement Heart Exam: Positive: Rate Normal, Regular Rhythm, Normal S1, Normal S2; Negative: Murmurs, Rubs Abdomen Exam: Positive: Normal bowel sounds, Soft; Negative: Tenderness, Hepatospenomegaly Extremity Exam: Negative: Clubbing, Cyanosis, Edema Vital Signs Vital Signs Date Time Temp Pulse Resp B/P (MAP) Pulse Ox O2 Delivery O2 Flow Rate FiO2 05/14/21 08:04 111 112/76 05/14/21 03:37 98.6 16 99 Room Air Laboratory Data Labs 24H Laboratory Tests 2 05/13/21 15:48: Nucleated Red Blood Cells % (auto) 0.0, Anion Gap 8, Glomerular Filtration Rate > 60.0, Calcium Level 9.7, Total Bilirubin 1.4H, Direct Bilirubin 0.3H, Aspartate Amino Transf (AST/SGOT) 9, Alanine Aminotransferase (ALT/SGPT) 15, Alkaline Phosphatase 83, Total Protein 7.7, Albumin 4.3, Albumin/Globulin Ratio 1.3, Thyroid Stimulating Hormone (TSH) 0.865, Human Chorionic Gonadotropin, Qual NEGATIVE, Salicylates Level < 1.7L, Urine Opiates Screen NEGATIVE, Urine Methadone Screen NEGATIVE, Acetaminophen Level < 2.0L, Urine Barbiturates Screen NEGATIVE, Urine Phencyclidine Screen NEGATIVE, Urine Amphetamines Screen NEGATIVE, Urine Benzodiazepines Screen NEGATIVE, Urine Cocaine Metabolite Screen NEGATIVE, Urine Cannabinoids Screen POSITIVEH, Ethyl Alcohol Level < 0.003 05/13/21 22:25: Coronavirus (COVID-19)(PCR) NEGATIVE, Influenza Type A (RT-PCR) NEGATIVE, Influenza Type B (RT-PCR) NEGATIVE, Respiratory Syncytial Virus (PCR) NEGATIVE CBC/BMP Laboratory Tests 05/13/21 15:48 Assessment/Plan 25 year old female admitted to [facility] for increased anxiety, depression with suicidal thoughts. DYLAN/Depression as per psychiatry No acute medical issues at this time Plan / VTE VTE Prophylaxis Ordered?: No (Freely ambulatory) Lisa Neal MD May 14, 2021 13:51
[2021-05-15] MEDS ORDERED: hydrOXYzine 50 MG TAB PO PRN (11:10)
[2021-05-15] MEDS: DULoxetine 20 MG CAP (CYMBALTA) PO SCH (12:00)
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
[2021-05-15 18:31] VITALS: BP 125/84
[2021-05-15] MEDS ORDERED: DULoxetine 20 MG CAP (CYMBALTA) PO ONE (21:00)
[2021-05-15] MEDS: RAMELTEON 8 MG TAB (ROZEREM) PO SCH (21:29)
[2021-05-16 06:18] VITALS: BP 106/70
[2021-05-16] MEDS: buPROPion **XL** TABLET 150MG (WELLBUTRIN XL) PO SCH (08:34)
[2021-05-16] MEDS: DULoxetine 20 MG CAP (CYMBALTA) PO SCH (08:34)
[2021-05-16] MEDS: clonazePAM 0.5 MG TAB PO PRN (14:11)
[2021-05-16 16:39] VITALS: BP 133/82
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
[2021-05-16] MEDS: RAMELTEON 8 MG TAB (ROZEREM) PO SCH (20:04)
[2021-05-17 06:37] VITALS: BP 129/69
[2021-05-17] MEDS: buPROPion **XL** TABLET 150MG (WELLBUTRIN XL) PO SCH (07:53)
[2021-05-17] MEDS: DULoxetine 30MG CAPSULE (CYMBALTA) PO SCH (07:54)
[2021-05-17] MEDS: clonazePAM 0.5 MG TAB PO PRN (14:18)
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
[2021-05-17 16:31] VITALS: BP 111/73
[2021-05-17] MEDS: RAMELTEON 8 MG TAB (ROZEREM) PO SCH (20:45)
[2021-05-18 06:29] VITALS: BP 109/77
[2021-05-18] MEDS ORDERED: CYMB1CAP5 PO (08:09)
[2021-05-18] MEDS ORDERED: BUPR150T12 PO (08:09)
[2021-05-18] MEDS ORDERED: RAME8TAB2 PO (08:09)
[2021-05-18] MEDS ORDERED: CLON0.5T2 PO (08:09)
[2021-05-18] MEDS: DULoxetine 30MG CAPSULE (CYMBALTA) PO SCH (08:18)
[2021-05-18] MEDS: buPROPion **XL** TABLET 150MG (WELLBUTRIN XL) PO SCH (08:18)
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
== END 2021-05-18 12:59 | disposition home or self-care (01) | DRG 751 ==
LOC: M ED 14:59 → M ED INP 05-14 00:06 → M PSY 05-14 03:38
PROVIDERS: ADMIT Student in an Organized Health Care Education/Training Program; ATTEND Student in an Organized Health Care Education/Training Program
DX: F33.1 Major depressive disorder, recurrent, moderate (principal); F41.1 Generalized anxiety disorder; F60.3 Borderline personality disorder; F41.0 Panic disorder [episodic paroxysmal anxiety]; Z88.0 Allergy status to penicillin; R45.851 Suicidal ideations; Z79.899 Other long term (current) drug therapy; M79.7 Fibromyalgia